=== PATIENT | female | born 1940 | race Caucasian/White ===

== ENCOUNTER 2022-12-26 12:56 | Emergency (ER) | payer MEDICARE, SELFPAY ==
[2022-12-26 13:32] VITALS: BP 127/67; PULSE 70; RESP 16; TEMP 36.6; O2SAT 100
--- NOTE | 2022-12-26 14:29 | ED.EAR ---
HPI - Ear Problem General Chief complaint: Ear Stated complaint: EARACHE Time Seen by Provider: 12/26/22 14:29 Source: patient Mode of arrival: ambulatory Limitations: no limitations History of Present Illness HPI Narrative: 82-year-old female presented for complaint of right ear, jaw, and restorationism Pain for over 1 week. Patient was seen by PCP, has been taking amoxicillin and steroid as prescribed. Denies significant relief in symptoms. States she has had her lower partial plate adjusted several times, but has not had significant pain recently. Denies tinnitus, dizziness, sinus congestion, nausea, vomiting, fevers or chills. Scheduled with ENT in January. Complaint: ear pain Related Data Allergies Allergy/AdvReac Type Severity Reaction Status Date / Time atorvastatin Allergy Mild Rash Verified 12/26/22 13:59 rivaroxaban Allergy Mild Rash Verified 12/26/22 13:59 lisinopril AdvReac Mild COUGH Verified 12/26/22 13:59 Review of Systems Review of Systems: CONSTITUTIONAL: Denies malaise, chills, or fever. EYES: Denies visual changes, redness, or discharge. ENT: Denies rhinorrhea, congestion, sinus pain, and sore throat. Reports ear pain CARDIOVASCULAR: Denies chest pain, palpitations, or edema. RESPIRATORY: Denies cough or dyspnea. GASTROINTESTINAL: Denies abdominal pain, nausea, vomiting, diarrhea SKIN: Denies rash or itching. MUSCULOSKELETAL: Denies myalgia. NEUROLOGIC: Denies headache. All systems reviewed & are unremarkable except as noted in HPI and below PMFSH Past Medical History Medical History (Updated 12/26/22 @ 14:44 by Maria D Warner, MARGARINE CHURN OPERATOR) No pertinent past medical history Comments At time of signature, agree with nursing past medical, surgical, social and family history. There is no relevant family history pertinent to the presenting complaint Exam Narrative: GENERAL: Well-appearing, well-nourished, and in no acute distress. HEAD: Normocephalic EYES: PERRLA, conjunctivae clear ENT: Nares clear. Mucous membranes moist. TMs pearly hunt with normal light reflex bilaterally; no tragal or mastoid tenderness. Oropharynx not erythematous without lesions. Tonsils not enlarged, no drooling, no hoarseness, no trismus, uvula midline. NECK: Supple. No lymphadenopathy CHEST: Clear to auscultation, breath sounds equal. HEART: Regular rate and rhythm. No murmur heard. SKIN: Warm, dry, no rash or lesions NEURO: Alert and oriented x3. PSYCH: Normal mood and affect Course Course Emergency Course: Patient is aware of diagnosis, understands and agrees to treatment plan. Anticipatory guidance given. Patient agrees to follow-up as directed and is aware of reasons to seek care at the emergency department. Portions of this record may have been created with voice recognition software Level of Care: Express Care Visit Vital Signs Vital signs: Vital Signs Temperature 97.8 F 12/26/22 13:32 Pulse Rate 70 12/26/22 13:32 Respiratory Rate 16 12/26/22 13:32 Blood Pressure 127/67 12/26/22 13:32 Pulse Oximetry 100 12/26/22 13:32 Temperature 97.8 F 12/26/22 13:32 Pulse Rate 70 12/26/22 13:32 Respiratory Rate 16 12/26/22 13:32 Blood Pressure 127/67 12/26/22 13:32 Pulse Oximetry 100 12/26/22 13:32 Reviewed Medical Decision Making MDM Narrative Medical decision making narrative: PE unremarkable, discussed physical findings with pt. Suspect trigeminal neuralgia. Currently taking steroid per pcp. Scheduled with ENT in January. Advised supportive measures and signs/symptoms to go to the ER. Patient is appropriate for outpatient treatment and follow-up. Differential Diagnosis Differential Diagnosis: trigeminal neuralgia, temporal arteritis, rhinosinusitis, nasopharyngitis, viral pharyngitis, otitis media, otitis externa, eustachian tube dysfunction, foreign body, cerumen impaction. Vital Signs Vital Signs: Vital Signs Temperature 97.8 F 12/26/22 13:32 Pulse Rate 70 12/26/22 13:32 Res
== END 2022-12-26 14:43 | disposition home or self-care (01) ==
PROVIDERS: Emergency Provider Nurse Practitioner Family; PCP Internal Medicine
DX: R51.9 Headache, unspecified (principal); H92.01 Otalgia, right ear
CPT/HCPCS: 99202; G0463

== ENCOUNTER 2023-04-06 20:14 | Emergency (ER) | payer MEDICARE, SELFPAY ==
[2023-04-06 20:16] VITALS: BP 178/90; PULSE 70; RESP 15; TEMP 36.7; O2SAT 100
--- NOTE | 2023-04-07 | ED.FALL ---
HPI - Fall General Chief Complaint: Fall Stated Complaint: fall Time Seen by Provider: 04/06/23 22:56 History of Present Illness HPI Narrative: Patient tripped on a step earlier while watching a baseball game and fell, landing on her left arm, ripping off a chunk of skin. She has no pain with movement of her elbow, someone at the game immediately wrapped it up with gauze. Related Data Home Medications Medication Instructions Recorded Confirmed apixaban 5 mg tablet (Eliquis) 5 mg PO BID 01/26/23 01/27/23 carboxymethyl 0.5 %-glycerin 1 1 drp EACH EYE QHS 01/26/23 01/27/23 %-polysorb 80 0.5 %-PF eye dropperette (Refresh Optive Umer-3 (PF)) cholecalciferol (vitamin D3) 50 50 mcg PO DAILY 01/26/23 01/27/23 mcg (2,000 unit) capsule ferrous sulfate 325 mg (65 mg 325 mg PO DAILY 01/26/23 01/27/23 iron) tablet fluticasone 250 mcg-salmeterol 50 1 inh inhalation BID 01/26/23 01/27/23 mcg/dose blistr powdr for inhalation (Advair Diskus) levothyroxine 100 mcg capsule 100 mcg PO DAILY 01/26/23 01/27/23 mecobalamin (vitamin B12) 500 mcg mcg PO 01/26/23 01/27/23 chewable tablet rosuvastatin 20 mg tablet 20 mg PO DAILY 01/26/23 01/27/23 telmisartan 40 mg tablet 40 mg PO DAILY 01/26/23 01/27/23 Allergies Allergy/AdvReac Type Severity Reaction Status Date / Time atorvastatin Allergy Mild Rash Verified 04/06/23 20:19 rivaroxaban Allergy Mild Rash Verified 04/06/23 20:19 Sulfa (Sulfonamide Allergy Unknown Unknown Verified 04/06/23 20:19 Antibiotics) lisinopril AdvReac Mild COUGH Verified 04/06/23 20:19 Review of Systems Review of Systems: CONST: No fever. HEENT: No sore throat C/V: No chest pain RESP: No cough GI: No abdominal pain : No dysuria. M/S: injury to left elbow SKIN: Skin tears to left elbow NEURO: [No headache or focal numbness or weakness] PSYCH: [No depression] [facility] Past Medical History Medical History Cataract fragments in both eyes following surgery Hyperlipidemia Hypertension No pertinent past medical history Varicose vein of leg Surgical History Surgical History History of cholecystectomy Total knee replacement status Family History Family History Father Hypertension Heart disease Mother Breast cancer Hypertension Cerebrovascular accident Sibling Cerebrovascular accident Grandparent Hypertension Social History Social History Smoking status: Never smoker Alcohol intake: never Lack of Transportation: No Lack of Food: Never True Current Housing: I Have Housing Concerned About Future Housing: No Difficulty Paying Gas/Electric Bills: No Difficulty Paying for Meds: No Currently Unemployed: No Education: Associate Degree Difficulty w/ Childcare or Family Care: No Gender identity (if verbalized by the patient): Female Exam Narrative: EXAMINATION OF ORGAN SYSTEMS/BODY AREAS: Constitutional: Vital signs per nursing GENERAL:[No acute distress, non-toxic appearing.] HEAD: Normal with no signs of head trauma. EYES: EOMI, conjunctiva normal ENT: Hearing grossly intact LUNGS: Nonlabored breathing. HEART: [Regular rate and rhythm] ABD: [Soft], [tender to palpation] EXT: Normal range of motion SKIN: Large area of skin tear 5 cm x 3 cm to left arm NEURO: [Alert and oriented x 3. No gross focal sensory or strength deficits.] PSYCH: Normal affect Course Vital Signs Vital signs: Vital Signs Temperature 98.1 F 04/06/23 20:16 Pulse Rate 70 04/06/23 20:16 Respiratory Rate 15 04/06/23 20:16 Blood Pressure 178/90 H 04/06/23 20:16 Pulse Oximetry 100 04/06/23 20:16 Oxygen Delivery Room Air 04/06/23 20:16 Temperature 98.1 F 04/06/23 20:16 Pulse Rate 72 04/07/23 01:02 Respiratory Rate 16 04/07/23 01
[2023-04-07 01:02] VITALS: BP 168/85; PULSE 72; RESP 16; O2SAT 97
== END 2023-04-07 01:03 | disposition home or self-care (01) ==
PROVIDERS: Emergency Provider Emergency Medicine; PCP Internal Medicine
DX: S41.112A Laceration without foreign body of left upper arm, initial encounter (principal); I10 Essential (primary) hypertension; E78.5 Hyperlipidemia, unspecified; W19.XXXA Unspecified fall, initial encounter; Y92.320 Baseball field as the place of occurrence of the external cause
CPT/HCPCS: 99282

== ENCOUNTER 2024-03-01 07:17 | Outpatient (CLI) | payer MEDICARE, SELFPAY ==
--- NOTE | ~2024-03-01 | US_ITS ---
EXAMINATION: US carotid duplex BI DATE: 03/01/2024 08:10 INDICATION: Bilateral carotid artery stenosis TECHNIQUE: Grayscale, color Doppler, and pulsed Doppler images of the cervical carotid arteries were obtained. The degree of vessel stenosis is placed in one of the following categories: normal, <50%, 5 0-69%, >=70% but less than near-occlusion, near-occlusion, or total occlusion. Note that percent sten osis relative to normal distal artery lumen diameter is indirectly measured from velocity measurement s as described by Willy, et al. Radiology 2003; 229:340-346. COMPARISON: None. FINDINGS: RIGHT: The right common carotid artery (CCA) peak systolic velocity (PSV) is 68.0 cm/s. The right internal c arotid artery (ICA) PSV is 71.3 cm/s. The right ICA end-diastolic velocity (EDV) is 20.8 cm/s. The ri t ICA/CCA PSV ratio is 1.0. Grayscale and color Doppler images yield an estimate of less than 50% d iameter reduction from plaque in the ICA. The external carotid artery (ECA) PSV is 86.7 cm/s. There i s antegrade flow in the right vertebral artery. LEFT: The left CCA PSV is 63.5 cm/s. The left ICA PSV is 70.2 cm/s. The left ICA EDV is 16.4 cm/s. The left ICA/CCA PSV ratio is 1.1. Grayscale and color Doppler images yield an estimate of less than 50% diam eter reduction from plaque in the ICA. The ECA PSV is 74.7 cm/s. There is antegrade flow in the left vertebral artery. IMPRESSION: 1. Less than 50% stenosis in the right internal carotid artery. 2. Less than 50% stenosis in the left internal carotid artery. Reviewed, dictated and finalized at Location [facility]. Reviewed, dictated and finalized at location B.
== END 2024-03-01 07:18 | disposition home or self-care (01) ==
PROVIDERS: PCP Internal Medicine; Visit Provider Internal Medicine Cardiovascular Disease
DX: I65.23 Occlusion and stenosis of bilateral carotid arteries (principal)
CPT/HCPCS: 93880

== ENCOUNTER 2024-05-26 01:48 | Day surgery (SDC) | payer MEDICARE, SELFPAY ==
[2024-05-26] VITALS (9 sets, daily range): BP systolic 137–176; BP diastolic 71–85; PULSE 61–70; RESP 14–29; TEMP 36.7; O2SAT 97–99; BMI 36.3
--- NOTE | 2024-05-26 07:30 | ECG_ITS ---
Test Date: 2024-05-26 12:58:03 Measurements Intervals [place] Rate: 69 P: 0 WA: 0 QRS: -73 QRSD: 188 T: 110 QT: 476 QTc: 513 Interpretive Statements ELECTRONIC VENTRICULAR PACEMAKER ABNORMAL RHYTHM ECG No previous ECG available for comparison Electronically Signed On 05-26-2024 15:10:54 CDT by Sixto Wilcox M.D.
[2024-05-26 08:24] LABS: Basophils Absolute Auto 0.1 K/mm3 (0.0-0.1); Basophils Percent Auto 0.8 % (0.2-1.2); Eosinophils Absolute Auto 0.1 K/mm3 (0-0.3); Eosinophils Percent Auto 2.2 % (0-4.4); Hematocrit 38.3 % (37.0-47.0); Hemoglobin 11.8 g/dL (12.0-15.0); Immature Granulocyte Absolute 0.04 K/mm3 (0.00-0.031); Immature Granulocyte Percent A 0.6 % (0-0.5); Lymphocytes Absolute Auto 1.62 K/mm3 (0.9-3.2); Lymphocytes Percent Auto 25.3 % (18.3-44.2); Mean Corpuscular HGB Conc 30.8 g/dl (32-36); Mean Corpuscular Hemoglobin 28.4 pg (26-34); Mean Corpuscular Volume 92.3 fl (80-100); Mean Platelet Volume 10.8 fl (7.4-10.4); Monocytes Absolute Auto 0.8 K/mm3 (0.1-0.6); Neutrophils Absolute Auto 3.7 K/mm3 (1.3-6.7); Neutrophils Percent Auto 58.1 % (45.5-73.1); Platelet Count Result 294 k/mm3 (150-375); Red Blood Count 4.15 M/mm3 (4.2-5.4); White Blood Count 6.4 K/mm3 (4.5-10.0)
[2024-05-26 08:33] LABS: Anion Gap 12 mmol/L (4-12); Blood Urea Nitrogen 40 mg/dL (7-17); Calcium 9.3 mg/dL (8.4-10.2); Carbon Dioxide 24 mmol/L (22-30); Chloride 101 mmol/L (98-107); Estimated CRCL calculation 22 ml/min; Estimated Glomerular Filt Rate 27; Glucose 114 mg/dL (65-110); Potassium 4.2 mmol/L (3.4-5.0); Sodium 137 mmol/L (137-145)
--- NOTE | 2024-05-26 08:36 | PM.IMHP ---
H&P: HPI History of Present Illness Date/Time: 05/26/24 08:36 Chief Complaint: No complaint, elective outpatient pacemaker generator change Narrative: This is an 84-year-old woman admitted today as an outpatient for generator change of her chronically implanted pacemaker which is been found to be at [facility] routine follow-up in the office. She follows in my office with Dr. Figueroa with a history of atrial fibrillation as well as Darvin arrhythmias requiring pacemaker implantation. Her device was implanted in January of 2012 because of sick sinus syndrome and symptomatic bradycardia. According to the notes she did have a lead revision done in her right ventricle in July of 2014. She has been followed since then has been doing well. According to the records her atrial fibrillation has now become chronic and she is anticoagulated with apixaban. On routine follow-up her pacemaker device has been found to be at [facility] and she is admitted today for a generator change. He does not report symptoms of chest pain shortness of breath orthopnea PND edema or near syncope. Anticoagulation with apixaban has been stopped 4 days ago. Review of Systems Constitutional: Constitutional: Reports no additional constitutional complaints Eyes: Eyes: Reports no additional eye complaints ENT: Reports system reviewed and no additional complaints, except as documented Cardiovascular: Cardiovascular: Reports no additional cardiovascular complaints Respiratory: Respiratory: Reports no additional respiratory complaints Gastrointestinal: Gastrointestinal: Reports no additional gastrointestinal complaints Musculoskeletal: Musculoskeletal: Reports no additional musculoskeletal complaints Neurologic: Reports system reviewed and no additional complaints, except as documented [facility] Past Medical History Medical History Cataract fragments in both eyes following surgery Hyperlipidemia Hypertension No pertinent past medical history Varicose vein of leg Surgical History Surgical History History of cholecystectomy Total knee replacement status Family History Family History Father Hypertension Heart disease Mother Breast cancer Hypertension Cerebrovascular accident Sibling Cerebrovascular accident Grandparent Hypertension Social History Social History Smoking status: Never smoker Alcohol intake: never Substance use: never Lack of Transportation: No Lack of Food: Never True Current Housing: I Have Housing Concerned About Future Housing: No Difficulty Paying Gas/Electric Bills: No Difficulty Paying for Meds: No Currently Unemployed: No Education: Associate Degree Difficulty w/ Childcare or Family Care: No Living arrangements: with family Gender identity (if verbalized by the patient): Female Spiritual care concerns: No Meds Home Medications and Allergies Home Medications Medication Instructions Recorded Confirmed Type apixaban 5 mg tablet (Eliquis) 5 mg PO BID 01/26/23 05/25/24 History carboxymethyl 0.5 %-glycerin 1 1 drp EACH EYE QHS 01/26/23 05/25/24 History %-polysorb 80 0.5 %-PF eye dropperette (Refresh Optive Umer-3 (PF)) cholecalciferol (vitamin D3) 50 50 mcg PO DAILY 01/26/23 05/25/24 History mcg (2,000 unit) capsule ferrous sulfate 325 mg (65 mg 325 mg PO DAILY 01/26/23 05/25/24 History iron) tablet levothyroxine 100 mcg capsule 100 mcg PO DAILY 01/26/23 05/25/24 History rosuvastatin 20 mg tablet 20 mg PO DAILY 01/26/23 05/25/24 History telmisartan 40 mg tablet 40 mg PO DAILY 01/26/23 05/25/24 History omeprazole 20 mg capsule,delayed 20 mg PO DAILY 02/02/24 05/25/24 History release mecobalamin (vitamin B12) 1,000 500 mcg sublingual DAILY 05/25/24 05/25/24 History mcg disintegrating
--- NOTE | 2024-05-26 08:40 | WPDMODSED ---
Moderate Sedation Note-Pt Data Patient Data Diagnosis: Chronically implanted pacemaker at [facility] Chronic atrial fibrillation Present Complaint: No complaint Procedure to be performed/Plan: Pacemaker generator change Allergies Allergy/AdvReac Type Severity Reaction Status Date / Time atorvastatin Allergy Mild Rash Verified 05/26/24 08:07 rivaroxaban Allergy Mild Rash Verified 05/26/24 08:07 Sulfa (Sulfonamide Allergy Unknown Unknown Verified 05/26/24 08:07 Antibiotics) lisinopril AdvReac Mild COUGH Verified 05/26/24 08:07 Home Medications Medication Instructions Recorded Confirmed Type apixaban 5 mg tablet (Eliquis) 5 mg PO BID 01/26/23 05/25/24 History carboxymethyl 0.5 %-glycerin 1 1 drp EACH EYE QHS 01/26/23 05/25/24 History %-polysorb 80 0.5 %-PF eye dropperette (Refresh Optive Umer-3 (PF)) cholecalciferol (vitamin D3) 50 50 mcg PO DAILY 01/26/23 05/25/24 History mcg (2,000 unit) capsule ferrous sulfate 325 mg (65 mg 325 mg PO DAILY 01/26/23 05/25/24 History iron) tablet levothyroxine 100 mcg capsule 100 mcg PO DAILY 01/26/23 05/25/24 History rosuvastatin 20 mg tablet 20 mg PO DAILY 01/26/23 05/25/24 History telmisartan 40 mg tablet 40 mg PO DAILY 01/26/23 05/25/24 History omeprazole 20 mg capsule,delayed 20 mg PO DAILY 02/02/24 05/25/24 History release mecobalamin (vitamin B12) 1,000 500 mcg sublingual DAILY 05/25/24 05/25/24 History mcg disintegrating tablet,sublingual Sedation/Anesthesia: No previous sedation/anesthesia problems (including family history). [facility] Past Medical History Medical History Cataract fragments in both eyes following surgery Hyperlipidemia Hypertension No pertinent past medical history Varicose vein of leg Surgical History Surgical History History of cholecystectomy Total knee replacement status Family History Family History Father Hypertension Heart disease Mother Breast cancer Hypertension Cerebrovascular accident Sibling Cerebrovascular accident Grandparent Hypertension Social History Social History Smoking status: Never smoker Alcohol intake: never Substance use: never Lack of Transportation: No Lack of Food: Never True Current Housing: I Have Housing Concerned About Future Housing: No Difficulty Paying Gas/Electric Bills: No Difficulty Paying for Meds: No Currently Unemployed: No Education: Associate Degree Difficulty w/ Childcare or Family Care: No Living arrangements: with family Gender identity (if verbalized by the patient): Female Spiritual care concerns: No Mod Sed Physical Exam Physical Exam Pre Procedural Exam: Normal: Appearance, Neck, Throat, Airway, Lungs, Heart Size, Heart Rate, Heart Rhythm and Extremities Hours since solid foods: 12 Hours since liquid intake: 12 Mallampati Classification: class II Internal Medicine - PN: Obj Da Vital Signs Vital Signs: Vital Signs - 24 hr 05/26/24 08:14 Temperature 36.7 C Pulse Rate 70 Respiratory Rate 19 Blood Pressure 176/71 H Pulse Oximetry 99 Oxygen Delivery Room Air Labs 05/26/24 08:16 05/26/24 08:16 Labs: Laboratory Results - last 24 hr 05/26/24 08:16 WBC 6.4 RBC 4.15 L Hgb 11.8 L Hct 38.3 MCV 92.3 MCH 28.4 MCHC 30.8 L RDW 14.0 Plt Count 294 MPV 10.8 H Immature Gran % (Auto) 0.6 H Neut % (Auto) 58.1 Lymph % (Auto) 25.3 [place]borne % (Auto) 13.0 H Eos % (Auto) 2.2 Baso % (Auto) 0.8 Lymph # (Auto) 1.62 [place] # (Auto) 0.8 H Eos # (Auto) 0.1 Baso # (Auto) 0.1 Abs Immat Gran (auto) 0.04 H Absolute Neuts (auto) 3.7 Absolute Nucleated RBC 0.000 Nucleated RBC % 0.0 Sodium 137 Potassium 4.2 Chloride 101 Carbon Dioxide 24 Anion Gap 12 BUN 40 H Creatinine
--- NOTE | 2024-05-26 11:52 | WPDCARDPROC ---
Cardiac Cath Procedure Note Date of procedure:: 05/26/24 Performing physician:: Sixto Wilcox MD Indication:: permanent pacemaker at [facility] Brief clinical history:: this is an 84-year-old woman with chronic atrial fibrillation and chronically implanted pacemaker because of sick sinus syndrome. Her current device was implanted in 2013. She is admitted electively for pacemaker generator change. Procedure Procedure performed:: Explant of depleted pacemaker pulse generator implant of new dual-chamber pacemaker pulse generator Sedation/Medication given:: fentanyl 50 mg Versed 4 mg case start time 10:34 a.m. case end time 1147 sedation provided by Tonya Rodriguez RN, trained observer Access site:: chronically implanted pacemaker pocket in the left anterior chest Estimated blood loss:: minimal Procedure note:: patient was brought to the cardiac catheterization lab in the postabsorptive state where the right femoral triangle was prepped and draped in the usual fashion. Anesthesia was given with 1% lidocaine infiltrated locally. Using modified Seldinger technique the femoral vein was punctured and a 5 vascular sheath placed. After this a balloon tipped temporary pacemaking wire was advanced into the venous circulation to the level of the right atrium. Despite multiple attempts I was unable to traverse the tricuspid valve and into the right ventricle. Attempts to protect the rhythm with temporary pacing were then abandoned. the left anterior chest wall was then prepped and draped to the thoracic portion of the procedure. I broke scrub and re scrubbed for that portion of the procedure. The patient received 20 cc of 1% lidocaine infiltrated a pocket and then the PlasmaBlade was used to create an incision over the chronically and plated pocket and was used to provide cutaneous hemostasis with electrocautery. The fibrous capsule was encountered and opened using the plasma blade and the Metzenbaum scissors. Following this the pacemaker generator in the attached leads were removed from the pocket and found to be visually intact and unremarkable in appearance. The atrial lead was then disconnected using the torque wrench and placed into the new generator and tightened using the same torque wrench. The ventricular lead was then disconnected using the torque wrench and quickly placed into the new pacemaker generator and secured with a torque wrench. There was an asystolic pause when the lead was transferred from the depleted generator to the new generator as the patient is pacemaker dependent. This pause was tolerated without incident. Following this the pocket was irrigated with antibiotic infused saline. The pacemaker in the attached leads were placed into the pocket this was then closed in layers using 3-0 Vicryl in an interrupted fashion for the subcutaneous tissue and 4-0 Vicryl in a running subcuticular fashion the skin. The wound was dressed with an Aquacel dressing she was taken to the holding area in stable condition there were no apparent procedural complications. Venous sheath removed from right femoral vein in the fish hatchery laborer before she left the fish hatchery laborer Findings:: the new pacemaker device implanted is an Fatsoma dual-chamber pacemaker model Assurity MRI 2272 pacemaker serial number [id number]. Device is programmed in the VVI mode with a lower rate limit of 70. The chronically implanted atrial lead is a [employer] Optisense 1999/46 CM , serial number [id number]. patient is in atrial fib as the chronic rhythm therefore the lead is nonfunctional chronically implanted ventricular lead is a [employer] bipolar lead model Tendril STS 2088TC /52cm serial number [id number]. the patient has no intrinsic R-waves to sense and capture threshold is 1.25 volts at 0.4 millisecond impedance 440 Ohms. Conclusion:: 1. Successful uncomplicated explantation of depleted pacemaker pulse generator 2. successful uncompl
== END 2024-05-26 14:15 | disposition home or self-care (01) ==
LOC: ANHCATHLAB 01:50 → ANHCARD 07:53 → ANHCATHLAB 07:58
PROVIDERS: PCP Internal Medicine; Visit Provider Specialist
PROC: 0JPT0PZ Removal of Cardiac Rhythm Related Device from Trunk Subcutaneous Tissue and Fascia, Open Approach (ICD-10-PCS; CPT 33228; principal; 2024-05-26 09:00)
DX: Z45.010 Encounter for checking and testing of cardiac pacemaker pulse generator [battery] (principal); I48.20 Chronic atrial fibrillation, unspecified; E78.5 Hyperlipidemia, unspecified; I10 Essential (primary) hypertension; Z96.659 Presence of unspecified artificial knee joint
CPT/HCPCS: 33228; 36415; 80048; 85025; 93005; C1785; C1894; J0690; J1644; J2250; J3010; J7040

== ENCOUNTER 2025-06-08 02:49 | Emergency (ER) | payer MEDICARE, SELFPAY ==
--- OUTSIDE RECORDS SUMMARY | 2010-03-25 10:15 | XMS_ITS | Continuity of Care Document ---
Author Organization [facility] Address [address] [facility] [facility] [address] [place] [address] Phone Care Team Providers Care Manager Enterprise Name Role Phone Duong Duffy Unavailable Unavailable Procedures Procedure Date Eye Exam & Treatment Refraction Office/outpatient Visit, Est Office/outpatient Visit, Est Office/outpatient Visit, Est Advance Directives Directive Yes / No Effective Date File Name No Information Encounters Encounter Description Practice Location Reason(s) For Visit Diagnoses Date Provider Providers Copied on Encounter [facility], [address] [place] [address] [address], [place], [place], [id number], [place] tel:[phone] SEC [facility] No Information 5 0 Loboishnasamy Duong. [address], [facility], [place]. tel:[phone] Office/outpat ient Visit, [facility], [address] [place] [address] [address], [place], [place], [id number], [place] tel:[phone] SEC [facility] No Information Dickson-0 1-201 0 Krishnasamy Duong. [address] [facility] [address], [place], [address], [place]. tel:[phone] Office/outpat ient Visit, [facility], [address] [place] [address] [address], [place], [place], [id number], [place] tel:[phone] SEC [facility] No Information 0 Tati Duong. [address], [address], [place]. tel:[phone] Office/outpat ient Visit, [facility], [address], [place], [place], [id number], tel:[phone] SEC [facility] No Information 0 Tati Duong. [address], [address], [place]. tel:[phone] Family History Family Member Type Diagnosis Age At Onset No Information Payers Payer name Insurance type Covered alliance party ID Nilton ramona(s) [employer] Plan [id number] Social History Type Description Quantity Date Captured [...]
[2025-06-08 02:48] VITALS: BP 162/59; PULSE 70; RESP 17; TEMP 36.6; O2SAT 100
--- OUTSIDE RECORDS SUMMARY | 2025-06-08 03:39 | XMS_ITS | Encounter Summary ---
Author Organization [facility] Medical Group Address [address] [address] Care Team Providers Care Corner Cutter Name Role Phone Leo Palacios MD Primary Care Provider Encounter Details Date Type Department Care Team (Late st Contact Info) Description 02/09/2017 Orders Only [facility] ProviderNara MD [address] [place] [id number] Social History Tobacco Use Types Packs/Day Years Used Date Smoking Tobacco: Never Alcohol Use Standard Drinks/Week Comments No 0 (1 standard drink = 0.6 oz pur e alcohol) Comments Unknown Sex and Gender Information Value Date Recorded Sex Assigned at Not on file Legal Sex 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 Historical Provider [facility] YRN [facility] Final Result documented in this encounter Visit Diagnoses Not on filedocumented in this encounter Care Teams Corner Cutter Relationship Specialty Start Date End Date Leo Palacios MD PCP - General 01/08/17 documented as of this encounter
--- OUTSIDE RECORDS SUMMARY | 2025-06-08 03:39 | XMS_ITS | Encounter Summary ---
Author Organization [facility] Healthcare Address [address] [place] [address] Care Team Providers Care Organic Preparation Analyst Name Role Phone Leo Palacios MD Primary Care Provider Encounter Details Date Type Department Care Team (Late st Contact Info) Description 05/26/2024 Orders Only [facility] Information Management [address] [place] [id number] Scanning, Provider Social History Tobacco Use Types Packs/Day Years Used Date Smoking Tobacco: Never Smokeless Tobacco: Never Alcohol Use Standard Drinks/Week Comments No 0 (1 standard drink = 0.6 oz pur e alcohol) Comments Unknown Sex and Gender Information Value Date Recorded Sex Assigned at Not on file 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 Gender Identity Not on file Sexual Orientation Not on file documented as of this encounter Plan of Treatment Not on file documented as of this encounter Procedures Procedure Name Priority Date/Time Associated Diagnosis Comments CARDIOLOGY DOCUMENT SCAN 05/26/2024 documented in this encounter Results * Cardiology Document Scan (05/26/2024) Anatomical Region Laterality Modality Other us Provider Scanning [facility] PROCEDURES Edited Result - Final documented in this encounter Visit Diagnoses Not on filedocumented in this encounter Care Teams Organic Preparation Analyst Relationship Specialty Start Date End Date Leo Palacios MD PCP - General 01/08/17 documented as of this encounter
--- OUTSIDE RECORDS SUMMARY | 2025-06-08 03:39 | XMS_ITS | Encounter Summary ---
Author Organization [facility] Medical Group Address [address] [address] Care Team Providers Care Home Health Care Case Manager Name Role Phone Leo Palacios MD Primary Care Provider Leo Palacios MD Primary Care Provider Encounter Details Date Type Department Care Team (Late st Contact Info) Description 11/10/2016 Orders Only [facility] ProviderNara MD [facility] [place] [address] Social History Tobacco Use Types Packs/Day Years Used Date Smoking Tobacco: Never Alcohol Use Standard Drinks/Week Comments No 0 (1 standard drink = 0.6 oz pur e alcohol) Comments Unknown Sex and Gender Information Value Date Recorded Sex Assigned at Not on file 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 Historical Provider [facility] YRN [facility]SHALL Final Result documented in this encounter Visit Diagnoses Not on filedocumented in this encounter Care Teams Home Health Care Case Manager Relationship Specialty Start Date End Date Leo Palacios MD PCP - General 01/08/17 Leo Palacios MD PCP - General 12/29/10 01/07/17 documented as of this encounter
--- OUTSIDE RECORDS SUMMARY | 2025-06-08 03:39 | XMS_ITS | Clinical Summary ---
Author Organization [facility] [address] Address [address] [place] [address] Care Team Providers Care Benzene Operator Name Role Phone Leo Palacios MD Primary Care Provider Allergies Active Allergy Reactions Criticality Noted Date Comments Ezetimibe Muscle pain Medium 04/29/2021 Atorvastatin Cough Low Sulfa (Sulfonamide Antibiotics) Rash Medium 02/02/2020 Rivaroxaban Other (See comments) Low 03/19/2020 Bleeding Medications rosuvastatin (CRESTOR) 20 mg tablet take 1 tablet (20MG) by oral route every day 0 12/03/19 11 Active cycloSPORINE (RESTASIS) 0.05 % ophthalmic emulsion instill 1 drop by ophthalmic route every 12 hours into affected eye(s) 0 drop 0 09/13/20 13 Active ferrous sulfate (IRON) 325 mg (65 mg iron) capsule, extended release take 1 by Oral route every day 0 0 09/13/20 13 Active fluticasone-salm eterol (ADVAIR DISKUS) 250-50 mcg/dose diskus inhaler inhale 1 puff by inhalation route 2 times every day in the morning and evening approximately 12 hours apart 0 0 03/27/20 15 Active levothyroxine (SYNTHROID, LEVOTHROID) 100 mcg tablet Take 1 tablet (100 mcg total) by mouth sales inspector before breakfast 08/11/20 18 Active cyanocobalamin (Vitamin B-12) 1,000 mcg tabletIndication s:Prevention of Vitamin B12 Deficiency Take 0.5 tablets (500 mcg total) by mouth daily Active carboxymethylcel lulose (REFRESH PLUS) 0.5 % dropperette Administer 1 drop into both eyes daily as needed for dry eyes Active furosemide (LASIX) 20 mg tabletIndication s:Bilateral lower extremity edema Take 1 tablet (20 mg total) by mouth daily as needed (swelling) 30 tablet 11 02/20/20 23 Active omeprazole (PriLOSEC) 10 mg capsule Take 1 capsule (10 mg total) by mouth daily Active telmisartan (MICARDIS) 40 mg tablet TAKE 1 TABLET BY MOUTH ONCE DAILY 100 tablet 2 08/24/20 24 Active cholecalciferol (VITAMIN D-3) 2000 unit capsule Take 1 capsule (2,000 Units total) by mouth daily 01/27/20 23 Active ascorbic acid (ascorbic acid with ju hips) 500 mg tablet,chewable Take 1 tablet/chew tab (500 mg total) by mouth daily Active apixaban (ELIQUIS) 2.5 mg tabletIndication s:atrial fibrillation Take 1 tablet (2.5 mg total) by mouth 2 (two) times a day 180 tablet 3 06/06/20 25 026 Active Eliquis 5 mg tablet TAKE 1 TABLET BY MOUTH TWICE DAILY 60 tablet 11 09/25/20 24 025 Discontin ued(Alter ernst therapy) Active Problems Problem Noted Date Diagnosed Date Bilateral carotid artery stenosis 02/16/2024 Chronic anticoagulation 02/26/2022 Bilateral lower extremity edema 12/12/2020 Presence of cardiac pacemaker 03/16/2017 Overview (06/07/2024): [place] Assurity Dual Pacemaker Dx; CHB, Afib. DOI 05/26/2024-Jeri. Chronic V-lead 07/16/2014, chronic atrial lead 01/20/11. [facility] remote monitoring. Programmed VVI-Bill Single PM. Peripheral artery disease 03/16/2017 Hyperlipidemia LDL goal <70 03/16/2017 Essential hypertension, benign 03/16/2017 Non-rheumatic aortic stenosis 03/16/2017 Complete atrioventricular block 09/13/2014 Overview (01/16/2017): Complete atrioventricular block Atrial fibrillation 09/13/2014 Overview (01/16/2017): Atrial fibrillation Encounters Date Type Department Care Team Description 06/06/2025 9:30 AM CDT Office Visit [facility] Cardiology [address] [place] [address] Tony Figueroa MD Bilateral carotid artery stenosis (Primary Dx); Essential hypertension, benign; Hyperlipidemia LDL goal <70; Non-rheumatic aortic stenosis; Presence of cardiac pacemaker; Chronic anticoagulation; Paroxysmal atrial fibrillation (HCC) 06/06/2025 Orders Only [facility] Cardiology [address] [place] [address] ProviderNara MD 03/27/2025 8:15 AM CDT Ancillary Procedure [facility] Medical [facility] Cardiology [address] [facility] [address], [place] [address] Presence of cardiac pacemaker (Primary Dx); Paroxysmal atrial fibrillation (HCC); CHB (complete heart block) (HCC) from Last 3 Months Family History Medical History Relation Name Comments Heart attack Father Myocardial Infa rction; Cause of : Myocardial Infarction Hypertension Maternal Grandfather Stroke Maternal Grandfather Hypertension Maternal Grandmother Stroke Maternal Grandmother Cancer Mother Hypertension Mother Stroke Mother Relation Name Status Comments Father Maternal Grandfather Maternal Grandmother Mother Social History Tobacco Use Types Packs/Day Years Used Date Smoking Tobacco: Never Smokeless Tobacco: Never Tobacco Cessation:Counseling Given: Not Answered Alcohol Use Standard Drinks/Week Comments No 0 (1 standard drink = 0.6 oz pur e alcohol) Comments Unknown Sex and Gender Information Value Date Recorded Sex Assigned at Not on file Legal Sex Female 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 Gender Identity Not on file Sexual Orientation Not on file Obstetrics History Last Filed Vital Signs Vital Sign Reading Time Taken Comments Blood Pressure 130/70 06/06/2025 9:59 AM CDT Pulse 70 06/06/2025 9:30 AM CDT Temperature 36.3 C (97.3 F) 06/10/2020 9:00 AM CDT Respiratory Rate - - Oxygen Saturation 99% 06/06/2025 9:30 AM CDT Inhaled Oxygen Concentration - - Weight 89.8 kg (198 lb) 06/06/2025 9:30 AM CDT Height 162.6 cm (5' 4) 06/06/2025 9:30 AM CDT Body Mass Index 33.99 06/06/2025 9:30 AM CDT Plan of Treatment Health Maintenance Due Date Last Done Comments Depression Screening 1940 Fall Risk Assessment 1940 Hepatitis B Screening 1958 Well Visit 65+ 2004 DTaP/Tdap/Td Vaccine (1 - Tdap) 06/01/2019 05/31/2019, 05/31/2019, 05/15/2019 Pneumococcal vaccine 65+ (3 of 3 - PCV20 or PCV21) 10/30/2020 10/30/2015, 07/11/1999 Zoster Vaccine (2 of 2) 02/08/2024 12/14/2023 Osteoporosis Screening-Bone Density Scan 01/28/2025 01/28/2023 Influenza Vaccine (#1) 2025 , 07/09/2022, 07/04/2021, Additional history exists Medical Devices Implanted Type Area Value Stream Manager Device Identifier Shelf Expiration Date Model / Serial / Lot [employer] Optisense 7fr 46cm Is-1 Bipolar Connector Optim Insulation-09/2011 Implanted:09/2011 (Quantity not on file) Lead Right: Chest [employer] / [id number] / [employer] 2087tc/ Tendril Sts 6fr 52cm Is-1 Connector Active Fixation Bipolar Soft- Implanted:03/2014 (Quantity not on file) Lead Right: Chest [employer] 8TC/52 / [id number] / Pacemaker-07/16/2014 Implanted:03/2014 (Quantity not on file) Pacemaker Chest [employer] CHB, PAF ASSURITY DR Genao0 / [id number] / Description:Chronic Atrial l ead 01/20/2011. Procedures Procedure Name Priority Date/Time Associated Diagnosis Comments LIPID PANEL Routine 05/08/2025 12:13 PM CDT DEVICE CHECK - REMOTE Routine 04/05/2025 3:55 PM CDT Paroxysmal atrial fibrillation (HCC) CHB (complete heart block) (HCC) from Last 3 Months Results * Lipid panel (05/08/2025 12:13 PM CDT) SCRIBED Cholesterol, Total 151 30 - 199 mg/dL [facility] SCRIBED Triglycerides 61 <=149 mg/dL [facility] SCRIBED HDL 66 >=40 mg/dL [facility] SCRIBED LDL 71 <=129 mg/dL [facility] Scribed Non-HDL Cholesterol 85 NONE mg/dL [facility] SCRIBED Total Cholesterol/HDL Ratio 151 NONE [facility] Blood Historical Provider LAB BLOOD ORDERABLES Edit ed Result - Final [facility] * DEVICE CHECK - REMOTE (04/05/2025 3:55 PM CDT) Anatomical Region Laterality Modality Other Narrative 05/10/2025 4:[address] [employer] dual Pacemaker Dx; CHB, PAF. DOI 07/16/2014, chronic atrial lead 01/20/11. [facility] remote home monitoring Q3 mo, office pacer checks Q1 year. Routine VVI Pacemaker Remote. Transmission attached. Battery status: 3.01 V , 9.1-9.5 years remaining battery life to [facility]. Stable lead impedances, pacing and sensing thresholds. Presenting rhythm: MATERIALS PLANNING MANAGER MATERIALS PLANNING MANAGER-90% No AT/AF episodes noted. No Ventricular high rate episodes detected. Medications: Eliquis 5 mg See scanned report. Office pacemaker follow up: 07/11/25 [facility] remote f/u 06/26/25. Raudel Thomas RN Tony Figueroa MD [facility] Final Result from Last 3 Months Insurance [facility] MEDICARE ADVANTAGE Care Teams Benzene Operator Relationship Specialty Start Date End Date Leo Palacios MD PCP - General 01/08/17
--- OUTSIDE RECORDS SUMMARY | 2025-06-08 03:39 | XMS_ITS | Encounter Summary ---
Author Organization [facility] Healthcare Address [address] [place] [address] Care Team Providers Care Switchbox Assembler Name Role Phone Leo Palacios MD Primary Care Provider Encounter Details Date Type Department Care Team (Late st Contact Info) Description 06/06/2025 Orders Only [facility] Medical [facility] Cardiology [address] [place] [address] ProviderNara MD [address] [place], [place] [id number] Social History Tobacco Use Types Packs/Day Years Used Date Smoking Tobacco: Never Smokeless Tobacco: Never Alcohol Use Standard Drinks/Week Comments No 0 (1 standard drink = 0.6 oz pur e alcohol) Comments Unknown Sex and Gender Information Value Date Recorded Sex Assigned at Not on file 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 Gender Identity Not on file Sexual Orientation Not on file documented as of this encounter Plan of Treatment Not on file documented as of this encounter Procedures Procedure Name Priority Date/Time Associated Diagnosis Comments LIPID PANEL Routine 05/08/2025 12:13 PM CDT documented in this encounter Results * Lipid panel (05/08/2025 12:13 PM CDT) SCRIBED Cholesterol, Total 151 30 - 199 mg/dL [facility] SCRIBED Triglycerides 61 <=149 mg/dL [facility] SCRIBED HDL 66 >=40 mg/dL [facility] SCRIBED LDL 71 <=129 mg/dL [facility] Scribed Non-HDL Cholesterol 85 NONE mg/dL [facility] SCRIBED Total Cholesterol/HDL Ratio 151 NONE [facility] Blood us Historical Provider LAB BLOOD ORDERABLES Edit ed Result - Final [facility] documented in this encounter Visit Diagnoses Not on filedocumented in this encounter Care Teams Switchbox Assembler Relationship Specialty Start Date End Date Leo Palacios MD PCP - General 01/08/17 documented as of this encounter
--- NOTE | 2025-06-08 04:10 | ED.GENADULT ---
HPI - General Adult General Chief complaint: Epistaxis Stated complaint: nosebleed Time Seen by Provider: 06/08/25 03:04 History of Present Illness HPI narrative: This is a pleasant 85-year-old female on Eliquis presenting for nose bleed. Patient says she woke up from sleep when he is resting which she knows blood was dripping from her nose. She was unable to get it to stop and then called EMS. EMS put on a nasal clamp. By time I interviewed the patient all bleeding had stopped. Related Data Home Medications ?Medication ?Instructions ?Recorded ?Confirmed ?Last Taken ?Type apixaban 5 mg tablet (Eliquis) 5 mg PO BID 01/26/23 02/07/25 05/22/24 17:00 History carboxymethyl 0.5 %-glycerin 1 1 drp EACH EYE QHS 01/26/23 02/07/25 05/25/24 History %-polysorb 80 0.5 %-PF eye dropperette (Refresh Optive Umer-3 (PF)) cholecalciferol (vitamin D3) 50 50 mcg PO DAILY 01/26/23 02/07/25 05/25/24 History mcg (2,000 unit) capsule ferrous sulfate 325 mg (65 mg 325 mg PO DAILY 01/26/23 02/07/25 05/25/24 History iron) tablet levothyroxine 100 mcg capsule 100 mcg PO DAILY 01/26/23 02/07/25 05/26/24 History rosuvastatin 20 mg tablet 20 mg PO DAILY 01/26/23 02/07/25 05/26/24 History telmisartan 40 mg tablet 40 mg PO DAILY 01/26/23 02/07/25 05/26/24 History omeprazole 20 mg capsule,delayed 20 mg PO DAILY 02/02/24 02/07/25 05/26/24 History release mecobalamin (vitamin B12) 1,000 500 mcg sublingual DAILY 05/25/24 02/07/25 05/25/24 History mcg disintegrating tablet,sublingual Allergies Allergy/AdvReac Type Severity Reaction Status Date / Time atorvastatin Allergy Mild Rash Verified 02/07/25 09:17 rivaroxaban Allergy Mild Rash Verified 02/07/25 09:17 Sulfa (Sulfonamide Allergy Unknown Unknown Verified 02/07/25 09:17 Antibiotics) lisinopril AdvReac Mild COUGH Verified 02/07/25 09:17 [facility] Past Medical History Medical History Cataract fragments in both eyes following surgery Hyperlipidemia Hypertension No pertinent past medical history Varicose vein of leg Surgical History Surgical History History of cholecystectomy Total knee replacement status Family History Family History Father Hypertension Heart disease Mother Breast cancer Hypertension Cerebrovascular accident Sibling Cerebrovascular accident Grandparent Hypertension Social History Social History Smoking status: Never smoker Alcohol intake: never Substance use: never Lack of Transportation: No Lack of Food: Never True Current Housing: I Have Housing Concerned About Future Housing: No Difficulty Paying Gas/Electric Bills: No Difficulty Paying for Meds: No Currently Unemployed: No Education: Associate Degree Difficulty w/ Childcare or Family Care: No Living arrangements: with family Gender identity (if verbalized by the patient): Female Spiritual care concerns: No Exam Narrative: APPEARANCE: No apparent distress. Head: atraumatic. EYES: EOMI, NOSE: Atraumatic, dried blood around the nose, excoriations inside the left nostril without active bleeding no visible bleeding in the right near NECK: Trachea midline RESPIRATORY: No increased rate of breathing CARDIOVASCULAR: RRR, ABDOMINAL: Non-distended MUSCULOSKELETAl: No obvious deformities NEURO: Alert. Moving 4/4 extremities SKIN:: Warm, dry. Normal color PSYCHIATRIC: Normal affect Course Vital Signs Vital signs: Vital Signs Temperature 97.8 F 06/08/25 02:48 Pulse Rate 70 06/08/25 02:48 Respiratory Rate 17 06/08/25 02:48 Blood Pressure 162/59 H 06/08/25 02:48 Pulse Oximetry 100 06/08/25 02:48 Oxygen Delivery Room Air 06/08/25 02:48 Temperature 97.8 F 06/08/25 02:48 Pulse Rate 70 06/08/25 02:48 Respiratory Rate 17 06/08/25 02:48 Blood Pressure 162/59 H 06/08/25 02:48 Pulse Oximetry 100 06/08/25 02:48 Oxygen Delivery Room Air 06/08/25 02:48 Medical Decision Making MDM Narrative Medical decision making narrative: -Course: 85-year-old female presenting with epistaxis. Bleed resolved with direct pressure. Patient educated on bleeding control and when to return to the ED. Patient will follow-up with primary care physician for further management. Vital Signs Vital Signs: Vital Signs Temperature 97.8 F 06/08/25 02:48 Pulse Rate 70 06/08/25 02:48 Respiratory Rate 17 06/08/25 02:48 Blood Pressure 162/59 H 06/08/25 02:48 Pulse Oximetry 100 06/08/25 02:48 Oxygen Delivery Room Air 06/08/25 02:48 Temperature 97.8 F 06/08/25 02:48 Pulse Rate 70 06/08/25 02:48 Respiratory Rate 17 06/08/25 02:48 Blood Pressure 162/59 H 06/08/25 02:48 Pulse Oximetry 100 06/08/25 02:48 Oxygen Delivery Room Air 06/08/25 02:48 Discharge Plan Discharge Clinical Impression: Epistaxis Patient Disposition: Home Condition: Stable Instructions: Antibiotic Form, Nosebleed (ED) Additional Instructions: You were seen in the ED for a nose bleed. If this happens again please hold direct pressure for 15 minutes to see if that resolves the bleeding. If you cannot control bleeding home please return to the emergency department. Please follow-up with your primary care physician in 5-7 days for further management. Patient Language: Romansh Prescriptions: No Action omeprazole 20 mg capsule,delayed release(DR/EC) 20 mg PO DAILY telmisartan 40 mg tablet 40 mg PO DAILY levothyroxine 100 mcg capsule 100 mcg PO DAILY rosuvastatin 20 mg tablet 20 mg PO DAILY Eliquis 5 mg tablet 5 mg PO BID ferrous sulfate 325 mg (65 mg iron) tablet 325 mg PO DAILY cholecalciferol (vitamin D3) 50 mcg (2,000 unit) capsule 50 mcg PO DAILY Refresh Optive Umer-3 (PF) 0.5-1-0.5 % dropperette 1 drp EACH EYE QHS mecobalamin (vitamin B12) 1,000 mcg Tablet,Disintegrating 500 mcg SUBLINGUAL DAILY Rx Instructions: place tablet under tongue and allow to dissolve for at least30 secs before swallowing Follow-up/Referrals: Philip,Leo Castro MD [Primary Care Provider]
[2025-06-08 05:19] VITALS: BP 123/57; PULSE 68; RESP 18; O2SAT 100
[2025-06-08 05:20] VITALS: BP 123/57; PULSE 68; RESP 18; O2SAT 100
== END 2025-06-08 05:22 | disposition home or self-care (01) ==
PROVIDERS: Emergency Provider Emergency Medicine; PCP Internal Medicine
DX: R04.0 Epistaxis (principal); I10 Essential (primary) hypertension; E78.5 Hyperlipidemia, unspecified; Z90.49 Acquired absence of other specified parts of digestive tract; Z96.659 Presence of unspecified artificial knee joint; Z79.01 Long term (current) use of anticoagulants; Z79.899 Other long term (current) drug therapy
CPT/HCPCS: 99281

== ENCOUNTER 2025-06-08 08:23 | Emergency (ER) | payer MEDICARE, SELFPAY ==
--- OUTSIDE RECORDS SUMMARY | 2010-03-25 10:15 | XMS_ITS | Continuity of Care Document ---
Author Organization [facility] Address [address] [place] [address] Phone Care Team Providers Care Bus Info Consultant Name Role Phone Duong Duffy Unavailable Unavailable Procedures Procedure Date Eye Exam & Treatment Refraction Office/outpatient Visit, Est Office/outpatient Visit, Est Office/outpatient Visit, Est Advance Directives Directive Yes / No Effective Date File Name No Information Encounters Encounter Description Practice Location Reason(s) For Visit Diagnoses Date Provider Providers Copied on Encounter [facility], [address] [place] [address] [address], [place], [place], [id number], [place] tel:[phone] SEC [facility] No Information 5 0 Loboishnasamy Duong. [address], [facility], [place]. tel:[phone] Office/outpat ient Visit, [facility], [address] [place] [address] [address], [place], [place], [id number], [place] tel:[phone] [facility] No Information Dickson-0 1-201 0 Krishnasamy Duong. [address] [facility] [address], [place], [address], [place]. tel:[phone] Office/outpat ient Visit, [facility], [address] [place] [address] [address], [place], [place], [id number], [place] tel:[phone] SEC [facility] No Information 0 Tati Duong. [address], [address], [place]. tel:[phone] Office/outpat ient Visit, [facility], [address], [place], [place], [id number], tel:[phone] [facility] No Information 0 Tati Duong. [address], [address], [place]. tel:[phone] Family History Family Member Type Diagnosis Age At Onset No Information Payers Payer name Insurance type Covered libertarian ID Nilton ramona(s) [employer] Plan [id number] Social History Type Description Quantity Date Captured Comments Sex Female Smoking Status No Information Chief Complaint And Reason For Visit No Information Reason For Referral Reason For Referral No Information History Of Present Illness Encounter Date Complaint History Of Prese nt Illness No Information Functional Status Date Functional Assessmen t No Information Instructions Date Instruction Additional Infor mation No Information Assessments Type Assessment Date No Information Patient Care Teams Name Effective Dates (start - stop) Status Members No Information
--- OUTSIDE RECORDS SUMMARY | 2010-03-25 10:15 | XMS_ITS | Continuity of Care Document ---
Author Organization [facility] Address [address] [place] [address] Phone Care Team Providers Care Logistics Planner Name Role Phone Duong Duffy Unavailable Unavailable Procedures Procedure Date Eye Exam & Treatment Refraction Office/outpatient Visit, Est Office/outpatient Visit, Est Office/outpatient Visit, Est Advance Directives Directive Yes / No Effective Date File Name No Information Encounters Encounter Description Practice Location Reason(s) For Visit Diagnoses Date Provider Providers Copied on Encounter [facility], [address] [place] [address] [address], [place], [place], [id number], [place] tel:[phone] SEC [facility] No Information 5 0 Loboishnasamy Duong. [address], [facility], [place]. tel:[phone] Office/outpat ient Visit, [facility], [address] [place] [address] [address], [place], [place], [id number], [place] tel:[phone] SEC [facility] No Information Dickson-0 1-201 0 Krishnasamy Duong. [address] [facility] [address], [place], [address], [place]. tel:[phone] Office/outpat ient Visit, [facility], [address] [place] [address] [address], [place], [place], [id number], [place] tel:[phone] [facility] No Information 0 Tati Duong. [address], [address], [place]. tel:[phone] Office/outpat ient Visit, [facility], [address], [place], [place], [id number], tel:[phone] [facility] No Information 0 Tati Duong. [address], [address], [place]. tel:[phone] Family History Family Member Type Diagnosis Age At Onset No Information Payers Payer name Insurance type Covered green party ID Nilton ramona(s) [employer] Plan [id number] Social History Type Description Quantity Date Captured [...]
--- OUTSIDE RECORDS SUMMARY | 2025-06-08 08:27 | XMS_ITS | Encounter Summary ---
Author Organization [facility] Address [address] [address] Care Team Providers Care Glass Beveler Name Role Phone Leo Palacios MD Primary Care Provider Encounter Details Date Type Department Care Team (Late st Contact Info) Description 02/09/2017 Orders Only [facility] ProviderNara MD [address] [place] [address] Social History Tobacco Use Types Packs/Day Years Used Date Smoking Tobacco: Never Alcohol Use Standard Drinks/Week Comments No 0 (1 standard drink = 0.6 oz pur e alcohol) Comments Unknown Sex and Gender Information Value Date Recorded Sex Assigned at Not on file Legal Sex Female 1:43 AM SCIENTIFIC DIVER Gender Identity Not on file Sexual Orientation [...] on filedocumented in this encounter Care Teams Glass Beveler Relationship Specialty Start Date End Date Leo Palacios MD PCP - General 01/08/17 documented as of this encounter
--- OUTSIDE RECORDS SUMMARY | 2025-06-08 08:27 | XMS_ITS | Encounter Summary ---
Author Organization [facility] Healthcare Address [address] [place] [address] Care Team Providers Care Custom Designer Name Role Phone Leo Palacios MD Primary Care Provider Encounter Details Date Type Department Care Team (Late st Contact Info) Description 05/26/2024 Orders Only [facility] Health Information Management [address] [place] [address] Scanning, Provider Social History Tobacco Use Types Packs/Day Years Used Date Smoking Tobacco: Never Smokeless Tobacco: Never Alcohol Use Standard Drinks/Week Comments No 0 (1 standard drink = 0.6 oz pur e alcohol) Comments Unknown Sex and Gender Information Value Date Recorded Sex Assigned at Not on file Legal Sex Female 1:43 AM STNA Gender Identity Not on file Sexual Orientation [...] on filedocumented in this encounter Care Teams Custom Designer Relationship Specialty Start Date End Date Leo Palacios MD PCP - General 01/08/17 documented as of this encounter
--- OUTSIDE RECORDS SUMMARY | 2025-06-08 08:27 | XMS_ITS | Encounter Summary ---
Author Organization [facility] Healthcare Address [address] [place] [address] Care Team Providers Care Restorative Coordinator Name Role Phone Leo Palacios MD Primary Care Provider Encounter Details Date Type Department Care Team (Late st Contact Info) Description 06/06/2025 Orders Only [facility] Cardiology [address] [facility] [address] [place] [address] ProviderNara MD [address] [place], [place] [id number] Social History Tobacco Use Types Packs/Day Years Used Date Smoking Tobacco: Never Smokeless Tobacco: Never Alcohol Use Standard Drinks/Week Comments No 0 (1 standard drink = 0.6 oz pur e alcohol) Comments Unknown Sex and Gender Information Value Date Recorded Sex Assigned at Not on file Legal Sex Female 1:43 AM TYPESETTING SUPERVISOR Gender Identity Not on file Sexual Orientation [...] on filedocumented in this encounter Care Teams Restorative Coordinator Relationship Specialty Start Date End Date Leo Palacios MD PCP - General 01/08/17 documented as of this encounter
--- OUTSIDE RECORDS SUMMARY | 2025-06-08 08:27 | XMS_ITS | Clinical Summary ---
Author Organization [facility] Address [address] [place] [address] Phone Care Team Providers Care Legal Support Manager Name Role Phone Leo Palacios MD Primary Care Provider [phone] Allergies Active Allergy Reactions Criticality Noted Date Comments Atorvastatin Cough,muscle pain Low 04/29/2021 Ezetimibe muscle pain 04/29/2021 Rivaroxaban 05/20/2022 Rosuvastatin 05/20/2022 Sulfa Antibiotics Rash Medium 02/02/2020 Medications apixaban (Eliquis) 5 MG tablet Eliquis 5 mg tablet 1 Active carboxymethylce llulose (REFRESH PLUS) 0.5 % ophthalmic solution Administer 1 drop into affected eye(s) Active cycloSPORINE (Restasis) 0.05 % ophthalmic emulsion Restasis 0.05 % eye drops in a dropperette INSTILL 1 DROP INTO AFFECTED EYE(S) BY OPHTHALMIC ROUTE EVERY 12 HOURS 3 Active ferrous sulfate 325 (65 Fe) MG tablet ferrous sulfate 325 mg (65 mg iron) tablet Take 1 tablet every day by oral route. 0 Active Advair Diskus 250-50 MCG/DOSE diskus inhaler 1 Active furosemide (LASIX) 20 MG tablet furosemide 20 mg tablet TAKE 1 TABLET (20 MG TOTAL) BY MOUTH DAILY NEEDED FOR SWELLING 1 Active levothyroxine (SYNTHROID) 100 MCG tablet 1 Active rosuvastatin (CRESTOR) 20 MG tablet 1 Active telmisartan (MICARDIS) 40 MG tablet 1 Active cyanocobalamin (VITAMIN B-12) 1000 MCG tablet Take 500 mcg by mouth daily Active baclofen (LIORESAL) 10 MG tablet Take 10 mg by mouth 4 (four) times a day 2 Active benzonatate (TESSALON) 200 MG capsule TAKE 1 CAPSULE BY MOUTH THREE TIMES A DAY 2 Active diphenoxylate-a tropine (LOMOTIL) 2.5-0.025 MG per tablet TAKE 1 TABLET BY MOUTH EVERY 6 HOURS NEEDED FOR DIARRHEA 2 Active Active Problems Problem Noted Date Diagnosed Date Full thickness rotator cuff tear 05/14/2022 Pain of right knee joint 04/16/2022 Cough 03/02/2022 Bilateral shoulder joint pain 02/19/2022 Rotator cuff arthropathy of right shoulder 02/19 Diarrhea 02/11/2022 Chronic kidney disease stage 3B 02/02/2022 Abnormal renal function 04/29/2021 Anemia 04/29/2021 Asthma 04/29/2021 Osteoarthritis of knee 04/29/2021 Disorder of sacrum 04/29/2021 Enthesopathy of hip region 04/29/2021 Gastroesophageal reflux disease 04/29/2021 Hip pain 04/29/2021 History of polyp of colon 04/29/2021 Hydronephrosis 04/29/2021 Hypothyroidism 04/29/2021 Implantation of joint prosthesis 04/29/2021 Iron deficiency anemia 04/29/2021 Knee pain 04/29/2021 Localized, primary osteoarth ritis of the pelvic region and thigh 04/29/2021 Osteoarthritis of hip 04/29/2021 Pernicious anemia 04/29/2021 Pure hypercholesterolemia 04/29/2021 Rosacea 04/29/2021 Serum creatinine abnormal 04/29/2021 Sick sinus syndrome 04/29/2021 Spinal enthesopathy 04/29/2021 Syncope 04/29/2021 Third degree uterine prolapse 04/29/2021 Urinary tract infectious disease 04/29/2021 Venous stasis 04/29/2021 Bilateral lower limb edema 12/12/2020 Shoulder pain 07/04/2020 Long-term current use of anticoagulant 9 Aortic stenosis, non-rheumatic 03/16/2017 Benign essential hypertension 03/16/2017 Hyperlipidemia 03/16/2017 Peripheral vascular disease 03/16/2017 Presence of cardiac pacemaker 03/16/2017 Overview (04/29/2021): [employer] Checo dual Pacemaker Dx; CHB, PAF. DOI 07/16/2014, chronic atrial lead 01/20/11. Lane remote home monitoring Q3 mo, office pacer checks Q1 year. Atrial fibrillation 09/13/2014 Overview (04/29/2021): Atrial fibrillation Complete atrioventricular block 09/13/2014 Overview (04/29/2021): Complete atrioventricular block Immunizations Immunization Administration Dates Next Due Influenza Split High Dose Pr eservative Free IM 08/21/2019,07/07/2018,08/05/2017 Influenza TIV (IM) 07/13/2016,08/29/2014, 013 Influenza, Injectable, Quadrivalent 07/09/2022,0 07/04/2021,09/26/2015 Pneumococcal Conjugate 13-Valent 10/30/2015 Pneumococcal Polysaccharide 07/11/1999 Sars-cov-2, Unspecified 12/17/2020,11/19/2020 TD Preservative Free 05/31/2019 Td, Unspecified 05/31/2019 Family History Medical History Relation Comments Heart disease Brother Heart disease Father Breast cancer Mother Stroke Mother Relation Status Comments Brother Father Mother Social History Tobacco Use Types Packs/Day Years Used Date Smoking Tobacco: Never Smokeless Tobacco: Never Tobacco Cessation:Counseling Given: Not Answered Alcohol Use Standard Drinks/Week Comments Not Currently 0 (1 standard drink = 0.6 oz pur e alcohol) Comments Unknown Sex and Gender Information Value Date Recorded Sex Assigned at Not on file Legal Sex Female 12:59 PM MDT Gender Identity Not on file Sexual Orientation Not on file Last Filed Vital Signs Vital Sign Reading Time Taken Comments Blood Pressure 130/72 09/23/2022 11:03 AM BICYCLE I ASSEMBLER Pulse - - Temperature 35.9 C (96.7 F) 09/23/2022 11:03 AM BICYCLE I ASSEMBLER Respiratory Rate 18 09/23/2022 11:03 AM BICYCLE I ASSEMBLER Oxygen Saturation - - Inhaled Oxygen Concentration - - Weight 88 kg (194 lb) 09/23/2022 11:03 AM BICYCLE I ASSEMBLER Height 170.2 cm (5' 7) 09/23/2022 11:03 AM BICYCLE I ASSEMBLER Body Mass Index 30.38 09/23/2022 11:03 AM BICYCLE I ASSEMBLER Plan of Treatment Health Maintenance Due Date Last Done Comments Pneumococcal PPSV23/PCV13 65 + Years / Low and Medium Risk (3 of 3 - PCV20 or PCV21) 10/30/2020 10/30/2015, 07/11/1999 Influenza Vaccine (#1) 2025 6, 08/29/2014, 07/19/2013 Insurance [employer] MEDICARE ADVANTAGE Care Teams Legal Support Manager Relationship Specialty Start Date End Date Leo Palacios MD [address] [address] PCP - General Internal Medicine 04/17/21
--- OUTSIDE RECORDS SUMMARY | 2025-06-08 08:27 | XMS_ITS | Clinical Summary ---
Author Organization [facility] [address] Address [address] [place] [address] Care Team Providers Care Plastic Welder Name Role Phone Leo Palacios MD Primary [...] 1 tablet (100 mcg total) by mouth second hand before breakfast 08/11/20 18 Active cyanocobalamin (Vitamin [...] Chronic V-lead 07/16/2014, chronic atrial lead 01/20/11. Amasa remote monitoring. Programmed VVI-Bill Single PM. Peripheral artery disease 03/16/2017 Hyperlipidemia LDL goal <70 03/16/2017 Essential hypertension, benign 03/16/2017 Non-rheumatic aortic stenosis 03/16/2017 Complete atrioventricular block 09/13/2014 Overview (01/16/2017): Complete atrioventricular block Atrial fibrillation 09/13/2014 Overview (01/16/2017): Atrial fibrillation Encounters Date Type Department Care Team Description 06/06/2025 9:30 AM CDT Office Visit [facility] Cardiology [address] [place] [address] Tony Figueroa MD Bilateral carotid artery stenosis (Primary Dx); Essential hypertension, benign; Hyperlipidemia LDL goal <70; Non-rheumatic aortic stenosis; Presence of cardiac pacemaker; Chronic anticoagulation; Paroxysmal atrial fibrillation (HCC) 06/06/2025 Orders Only [facility] Cardiology [address] [place] [address] ProviderNara MD 03/27/2025 8:15 AM CDT Ancillary Procedure [facility] Medical [facility] Cardiology [address] [facility] [address], [place] [address] Presence of cardiac pacemaker (Primary [...] on file Legal Sex Female 1:43 AM IMPLEMENTATION MANAGER Gender Identity Not on file Sexual Orientation [...] history exists Medical Devices Implanted Type Area Supervisor Respiratory Device Identifier Shelf Expiration Date Model / Serial / Lot [employer] Optisense 7fr 46cm Is-1 Bipolar Connector Optim Insulation-09/2011 Implanted:09/2011 (Quantity not on file) Lead Right: Chest [employer] Inc / [id number] / [employer] 2087tc/ Tendril Sts 6fr 52cm Is-1 Connector Active Fixation Bipolar Soft- Implanted:03/2014 (Quantity not on file) Lead Right: Chest [employer] 8TC/52 / [id number] / Pacemaker-07/16/2014 Implanted:03/2014 (Quantity not on file) Pacemaker Chest [employer] CHB, PAF ASSURITY DR Genao0 / [id number] / Description:Chronic Atrial l ead 01/20/2011. Procedures [...] PAF. DOI 07/16/2014, chronic atrial lead 01/20/11. Amasa remote home monitoring Q3 mo, office pacer checks Q1 year. Routine VVI Pacemaker Remote. Transmission attached. Battery status: 3.01 V , 9.1-9.5 years remaining battery life to ESMER. Stable lead impedances, pacing and sensing thresholds. Presenting rhythm: DESIGN ENGINEERING MANAGER DESIGN ENGINEERING MANAGER-90% No AT/AF episodes noted. No Ventricular high rate episodes detected. Medications: Eliquis 5 mg See scanned report. Office pacemaker follow up: 07/11/25 Amasa remote f/u 06/26/25. Raudel Thomas RN Tony Figueroa MD [facility] Final Result from Last 3 Months Insurance [facility] MEDICARE ADVANTAGE [facility] MEDICARE Address: [address] [address] [place] [address] [facility] Address: [address] [address] [place] [address] [facility] MEDICARE Address: [address] [address] [place] [address] Care Teams Plastic Welder Relationship Specialty Start Date End Date Leo Palacios MD PCP - General 01/08/17
--- OUTSIDE RECORDS SUMMARY | 2025-06-08 08:27 | XMS_ITS | Encounter Summary ---
Author Organization [facility] Address [address] [address] Care Team Providers Care Bed Rubber Name Role Phone Leo Palacios MD Primary Care Provider Leo Palacios MD Primary Care Provider Encounter Details Date Type Department Care Team (Late st Contact Info) Description 11/10/2016 Orders Only [facility] ProviderNara MD [facility] [place] [address] Social History Tobacco Use Types Packs/Day Years Used Date Smoking Tobacco: Never Alcohol Use Standard Drinks/Week Comments No 0 (1 standard drink = 0.6 oz pur e alcohol) Comments Unknown Sex and Gender Information Value Date Recorded Sex Assigned at Not on file Legal Sex Female 1:43 AM CHAIRMAN PRESIDENT AND CHIEF EXECUTIVE OFFICER Gender Identity Not on file Sexual Orientation [...] on filedocumented in this encounter Care Teams Bed Rubber Relationship Specialty Start Date End Date Leo Palacios MD PCP - General 01/08/17 Leo Palacios MD PCP - General 12/29/10 01/07/17 documented as of this encounter
[2025-06-08 08:36] VITALS: BP 160/68; PULSE 62; RESP 18; TEMP 36.3; O2SAT 100
--- OUTSIDE RECORDS SUMMARY | 2025-06-08 09:13 | XMS_ITS | Clinical Summary ---
Author Organization [facility] [address] Address [address] [place] [address] Care Team Providers Care Diesel Tractor Engine Mechanic Name Role Phone Leo Palacios MD Primary [...] 1 tablet (100 mcg total) by mouth plum packer before breakfast 08/11/20 18 Active cyanocobalamin (Vitamin [...] Chronic V-lead 07/16/2014, chronic atrial lead 01/20/11. [place] remote monitoring. Programmed VVI-Bill Single PM. Peripheral artery disease 03/16/2017 Hyperlipidemia LDL goal <70 03/16/2017 Essential hypertension, benign 03/16/2017 Non-rheumatic aortic stenosis 03/16/2017 Complete atrioventricular block 09/13/2014 Overview (01/16/2017): Complete atrioventricular block Atrial fibrillation 09/13/2014 Overview (01/16/2017): Atrial fibrillation Encounters Date Type Department Care Team Description 06/06/2025 9:30 AM CDT Office Visit [facility] Cardiology [address] [place] [address] Tony Figueroa MD Bilateral carotid artery stenosis (Primary Dx); Essential hypertension, benign; Hyperlipidemia LDL goal <70; Non-rheumatic aortic stenosis; Presence of cardiac pacemaker; Chronic anticoagulation; Paroxysmal atrial fibrillation (HCC) 06/06/2025 Orders Only [facility] Cardiology [address] [place] [address] ProviderNara MD 03/27/2025 8:15 AM CDT Ancillary Procedure [facility] Medical [facility] Cardiology [address] [facility] [address], [place] [address] Presence of cardiac pacemaker (Primary [...] on file Legal Sex Female 1:43 AM CELL TUBER MACHINE Gender Identity Not on file Sexual Orientation [...] history exists Medical Devices Implanted Type Area Log Snaker Device Identifier Shelf Expiration Date Model / Serial / Lot [employer] Optisense 7fr 46cm Is-1 Bipolar Connector Optim Insulation-09/2011 Implanted:09/2011 (Quantity not on file) Lead Right: Chest [employer] / [id number] / [employer] 2087tc/ Tendril Sts 6fr 52cm Is-1 Connector Active Fixation Bipolar Soft- Implanted:03/2014 (Quantity not on file) Lead Right: Chest [employer] 8TC/52 / [id number] / Pacemaker-07/16/2014 Implanted:03/2014 (Quantity not on file) Pacemaker Chest [employer] CHB, PAF ASSURITY DR Genao0 / [id number] / Description:Chronic Atrial l ead 01/20/2011. Procedures [...] PAF. DOI 07/16/2014, chronic atrial lead 01/20/11. [employer] remote home monitoring Q3 mo, office pacer checks Q1 year. Routine VVI Pacemaker Remote. Transmission attached. Battery status: 3.01 V , 9.1-9.5 years remaining battery life to ESMER. Stable lead impedances, pacing and sensing thresholds. Presenting rhythm: PLUMBING ENGINEERING DRAFTSPERSON PLUMBING ENGINEERING DRAFTSPERSON-90% No AT/AF episodes noted. No Ventricular high rate episodes detected. Medications: Eliquis 5 mg See scanned report. Office pacemaker follow up: 07/11/25 [employer] remote f/u 06/26/25. Raudel Thomas RN Tony Figueroa MD [facility] Final Result from Last 3 Months Insurance [facility]ICARE ADVANTAGE [facility] Address: [address] [address] [place] [address] [facility] Address: [facility] [address] [place] [address] [facility] Address: [address] [address] [place] [address] Care Teams Diesel Tractor Engine Mechanic Relationship Specialty Start Date End Date Leo Palacios MD PCP - General 01/08/17
--- OUTSIDE RECORDS SUMMARY | 2025-06-08 09:13 | XMS_ITS | Clinical Summary ---
Author Organization [facility] Address [address] [place] [phone] Phone Care Team Providers Care Solar Maintenance Technician Name Role Phone Leo Palacios MD Primary Care Provider [phone] Allergies Active Allergy Reactions Criticality Noted Date [...] Comments Blood Pressure 130/72 09/23/2022 11:03 AM GOLF CART REPAIRER Pulse - - Temperature 35.9 C (96.7 F) 09/23/2022 11:03 AM GOLF CART REPAIRER Respiratory Rate 18 09/23/2022 11:03 AM GOLF CART REPAIRER Oxygen Saturation - - Inhaled Oxygen Concentration - - Weight 88 kg (194 lb) 09/23/2022 11:03 AM GOLF CART REPAIRER Height 170.2 cm (5' 7) 09/23/2022 11:03 AM GOLF CART REPAIRER Body Mass Index 30.38 09/23/2022 11:03 AM GOLF CART REPAIRER Plan of Treatment Health Maintenance Due Date Last Done Comments Pneumococcal PPSV23/PCV13 65 + Years / Low and Medium Risk (3 of 3 - PCV20 or PCV21) 10/30/2020 10/30/2015, 07/11/1999 Influenza Vaccine (#1) 2025 6, 08/29/2014, 07/19/2013 Insurance [employer] MEDICARE ADVANTAGE Care Teams Solar Maintenance Technician Relationship Specialty Start Date End Date Leo Palacios MD [address] [phone] PCP - General Internal Medicine 04/17/21
--- OUTSIDE RECORDS SUMMARY | 2025-06-08 09:14 | XMS_ITS | Encounter Summary ---
Author Organization [facility] Address [address] [address] Care Team Providers Care Real Estate Assessor Name Role Phone Leo Palacios MD Primary Care Provider Encounter Details Date Type Department Care Team (Late st Contact Info) Description 02/09/2017 Orders Only [facility] ProviderNara MD [address] [place] [address] Social History Tobacco Use Types Packs/Day Years Used Date Smoking Tobacco: Never Alcohol Use Standard Drinks/Week Comments No 0 (1 standard drink = 0.6 oz pur e alcohol) Comments Unknown Sex and Gender Information Value Date Recorded Sex Assigned at Not on file Legal Sex Female 1:43 AM PHYSICIAN PRACTICE CONSULTANT Gender Identity Not on file Sexual Orientation [...] on filedocumented in this encounter Care Teams Real Estate Assessor Relationship Specialty Start Date End Date Leo Palacios MD PCP - General 01/08/17 documented as of this encounter
--- OUTSIDE RECORDS SUMMARY | 2025-06-08 09:14 | XMS_ITS | Encounter Summary ---
Author Organization [facility] Healthcare Address [address] [place] [address] Care Team Providers Care Pediatric Rn Name Role Phone Leo Palacios MD Primary Care Provider Encounter Details Date Type Department Care Team (Late st Contact Info) Description 05/26/2024 Orders Only [facility] [place] Information Management [address] [place] [phone] Scanning, Provider Social History Tobacco Use Types Packs/Day Years Used Date Smoking Tobacco: Never Smokeless Tobacco: Never Alcohol Use Standard Drinks/Week Comments No 0 (1 standard drink = 0.6 oz pur e alcohol) Comments Unknown Sex and Gender Information Value Date Recorded Sex Assigned at Not on file Legal Sex Female 1:43 AM SPUDDER Gender Identity Not on file Sexual Orientation [...] on filedocumented in this encounter Care Teams Pediatric Rn Relationship Specialty Start Date End Date Leo Palacios MD PCP - General 01/08/17 documented as of this encounter
--- OUTSIDE RECORDS SUMMARY | 2025-06-08 09:14 | XMS_ITS | Encounter Summary ---
Author Organization [facility] Address [address] [address] Care Team Providers Care Carbon Plant Grinder Name Role Phone Leo Palacios MD Primary Care Provider Leo Palacios MD Primary Care Provider Encounter Details Date Type Department Care Team (Late st Contact Info) Description 11/10/2016 Orders Only [facility] ProviderNara MD [facility] [place] [address] Social History Tobacco Use Types Packs/Day Years Used Date Smoking Tobacco: Never Alcohol Use Standard Drinks/Week Comments No 0 (1 standard drink = 0.6 oz pur e alcohol) Comments Unknown Sex and Gender Information Value Date Recorded Sex Assigned at Not on file Legal Sex Female 1:43 AM CHAMBER MAGISTRATE Gender Identity Not on file Sexual Orientation [...] on filedocumented in this encounter Care Teams Carbon Plant Grinder Relationship Specialty Start Date End Date Leo Palacios MD PCP - General 01/08/17 Leo Palacios MD PCP - General 12/29/10 01/07/17 documented as of this encounter
--- OUTSIDE RECORDS SUMMARY | 2025-06-08 09:14 | XMS_ITS | Encounter Summary ---
Author Organization [facility] Healthcare Address [address] [place] [address] Care Team Providers Care Analyzer Sales Name Role Phone Leo Palacios MD Primary Care Provider Encounter Details Date Type Department Care Team (Late st Contact Info) Description 06/06/2025 Orders Only [facility] Cardiology [address] [facility] [address] [place] [address] ProviderNara MD [address] [place], [place] [id number] Social History Tobacco Use Types Packs/Day Years Used Date Smoking Tobacco: Never Smokeless Tobacco: Never Alcohol Use Standard Drinks/Week Comments No 0 (1 standard drink = 0.6 oz pur e alcohol) Comments Unknown Sex and Gender Information Value Date Recorded Sex Assigned at Not on file Legal Sex Female 1:43 AM SLAT TWISTER Gender Identity Not on file Sexual Orientation [...] on filedocumented in this encounter Care Teams Analyzer Sales Relationship Specialty Start Date End Date Leo Palacios MD PCP - General 01/08/17 documented as of this encounter
--- NOTE | 2025-06-08 10:24 | ED.EPISTAXIS ---
HPI - Epistaxis General Chief complaint: Epistaxis Stated complaint: returning w/ nose bleed Time Seen by Provider: 06/08/25 09:01 Source: patient and old records reviewed Mode of arrival: ambulatory Limitations: no limitations History of Present Illness HPI Narrative: Patient is an 85-year-old female who presents the ED with report of a nosebleed. Patient reports she was seen in the ED earlier today for a right-sided epistaxis. Resolved with direct pressure. She states she went home and attempted to clean her face and began having recurrent bleeding. Complains of bleeding mostly from her right nare. She is on eliquis d/t hx of afib. Denies dizziness/lightheadedness, trauma. Related Data Home Medications ?Medication ?Instructions ?Recorded ?Confirmed ?Last Taken ?Type apixaban 5 mg tablet (Eliquis) 5 mg PO BID 01/26/23 02/07/25 05/22/24 17:00 History carboxymethyl 0.5 %-glycerin 1 1 drp EACH EYE QHS 01/26/23 02/07/25 05/25/24 History %-polysorb 80 0.5 %-PF eye dropperette (Refresh Optive Umer-3 (PF)) cholecalciferol (vitamin D3) 50 50 mcg PO DAILY 01/26/23 02/07/25 05/25/24 History mcg (2,000 unit) capsule ferrous sulfate 325 mg (65 mg 325 mg PO DAILY 01/26/23 02/07/25 05/25/24 History iron) tablet levothyroxine 100 mcg capsule 100 mcg PO DAILY 01/26/23 02/07/25 05/26/24 History rosuvastatin 20 mg tablet 20 mg PO DAILY 01/26/23 02/07/25 05/26/24 History telmisartan 40 mg tablet 40 mg PO DAILY 01/26/23 02/07/25 05/26/24 History omeprazole 20 mg capsule,delayed 20 mg PO DAILY 02/02/24 02/07/25 05/26/24 History release mecobalamin (vitamin B12) 1,000 500 mcg sublingual DAILY 05/25/24 02/07/25 05/25/24 History mcg disintegrating tablet,sublingual Allergies Allergy/AdvReac Type Severity Reaction Status Date / Time atorvastatin Allergy Mild Rash Verified 02/07/25 09:17 rivaroxaban Allergy Mild Rash Verified 02/07/25 09:17 Sulfa (Sulfonamide Allergy Unknown Unknown Verified 02/07/25 09:17 Antibiotics) lisinopril AdvReac Mild COUGH Verified 02/07/25 09:17 Review of Systems Review of Systems: All systems reviewed & are unremarkable except as noted in HPI. All systems reviewed & are unremarkable except as noted in HPI and below PMFSH Past Medical History Medical History Hyperlipidemia Hypertension Cataract fragments in both eyes following surgery Varicose vein of leg No pertinent past medical history Surgical History Surgical History Total knee replacement status History of cholecystectomy Family History Family History Father Hypertension Heart disease Mother Breast cancer Hypertension Cerebrovascular accident Sibling Cerebrovascular accident Grandparent Hypertension Social History Social History Smoking status: Never smoker Alcohol intake: never Substance use: never Lack of Transportation: No Lack of Food: Never True Current Housing: I Have Housing Concerned About Future Housing: No Difficulty Paying Gas/Electric Bills: No Difficulty Paying for Meds: No Currently Unemployed: No Education: Associate Degree Difficulty w/ Childcare or Family Care: No Living arrangements: with family Gender identity (if verbalized by the patient): Female Spiritual care concerns: No Exam Narrative: GENERAL: Well appearing, obese with BMI of 33.5, non-toxic, in no acute distress. HEAD: Normocephalic, atraumatic. ENT: No active epistaxis, mild erythema noted to external nose. Small amount of dry blood in bilateral inferior nares. No septal hematoma. RESPIRATORY: Airway patent, respirations nonlabored. CARDIOVASCULAR: Regular rate and rhythm MUSCULOSKELETAL: Moves all extremities. No gross deformities. SKIN: Warm, dry, normal color. NEURO: A&O X3. Speech clear. PSYCHIATRIC: Appropriate mood and affect. Normal interaction. Course Vital Signs Vital signs: Vital Signs Temperature 97.4 F L 06/08/25 08:36 Pulse Rate 62 06/08/25 08:36 Respiratory Rate 18 06/08/25 08:36 Blood Pressure 160/68 H 06/08/25 08:36 Pulse Oximetry 100 06/08/25 08:36 Oxygen Delivery Room Air 06/08/25 08:36 Temperature 97.4 F L 06/08/25 08:36 Pulse Rate 62 06/08/25 08:36 Respiratory Rate 18 06/08/25 08:36 Blood Pressure 160/68 H 06/08/25 08:36 Pulse Oximetry 100 06/08/25 08:36 Oxygen Delivery Room Air 06/08/25 08:36 MDM - Epistaxis MDM Narrative Medical decision making narrative: Presented with epistaxis on Eliquis. Seen in the ED earlier today for similar symptoms. Nasal clamp placed upon arrival to the ED today. Upon my evaluation, no active bleeding. Patient was monitored in the ED for approximately 2 hours and has not had any recurrence of epistaxis. Feel she is safe for discharge home at this time. Will refer to ENT for further eval if needed. Discussed further nosebleed management. Given return precautions. Discharged in stable condition. Vital signs otherwise stable. Patient hemodynamically stable. Medical Records Attestation: I reviewed the patient's medical records. Discharge Plan Discharge Clinical Impression: Anterior epistaxis, Chronic anticoagulation Patient Disposition: Home Condition: Stable Instructions: Antibiotic Form, Nosebleed (ED) Additional Instructions: Follow up with ENT for further evaluation if needed. Avoid rubbing or blowing your nose for the next few days. Recommend humidifier or placing Vaseline inside nostrils at night to avoid drying out. You may also use nasal spray/saline spray to nose to keep moist. If bleeding recurs, utilize Afrin to nostrils and place nasal clamp for approximately 30 minutes. Do not adjust or move the clamp for at least 30 minutes. If bleeding does still persistent after 30 minutes, replace clamp for an additional 15 minutes. If bleeding is still persistent after 1 hour, return to the ED for further evaluation. Additionally, return if you experience severe pain, weakness, passing out, significant dizziness, or any other symptoms of concern. Patient Language: Yakut Prescriptions: New Afrin (oxymetazoline) 0.05 % mist 2 spray intranasal Q12H PRN (Reason: nasal congestion) 3 Days Qty: 15 0RF No Action omeprazole 20 mg capsule,delayed release(DR/EC) 20 mg PO DAILY telmisartan 40 mg tablet 40 mg PO DAILY levothyroxine 100 mcg capsule 100 mcg PO DAILY rosuvastatin 20 mg tablet 20 mg PO DAILY Eliquis 5 mg tablet 5 mg PO BID ferrous sulfate 325 mg (65 mg iron) tablet 325 mg PO DAILY cholecalciferol (vitamin D3) 50 mcg (2,000 unit) capsule 50 mcg PO DAILY Refresh Optive Umer-3 (PF) 0.5-1-0.5 % dropperette 1 drp EACH EYE QHS mecobalamin (vitamin B12) 1,000 mcg Tablet,Disintegrating 500 mcg SUBLINGUAL DAILY Rx Instructions: place tablet under tongue and allow to dissolve for at least30 secs before swallowing Follow-up/Referrals: Nitesh Eckert MD [Physician, Ear, Nose, Throat] Referral Note: ENT Palacios,Leo Castro MD [Primary Care Provider] Time of Disposition: 10:25
== END 2025-06-08 10:41 | disposition home or self-care (01) ==
PROVIDERS: Emergency Provider Physician Assistant; PCP Internal Medicine
DX: R04.0 Epistaxis (principal); I48.91 Unspecified atrial fibrillation; Z79.01 Long term (current) use of anticoagulants; E78.5 Hyperlipidemia, unspecified; I10 Essential (primary) hypertension; Z90.49 Acquired absence of other specified parts of digestive tract; Z96.659 Presence of unspecified artificial knee joint
CPT/HCPCS: 99283

== ENCOUNTER 2025-07-12 09:47 | Outpatient (CLI) | payer MEDICARE, SELFPAY ==
--- OUTSIDE RECORDS SUMMARY | 2025-07-11 10:30 | XMS_ITS | Encounter Summary ---
Author Organization [facility] Healthcare Address [address] [place] [address] Care Team Providers Care Swimmer Name Role Phone Leo Palacios MD Primary Care Provider Reason for Visit * Cardiology (Routine) - Closed Specialty Diagnoses / Procedures Referred By Contwilfredo t Referred To Contact Diagnoses CHB (complete heart block) Paroxysmal atrial fibrillation (HCC) Presence of cardiac pacemaker Procedures DEVICE CHECK - IN OFFICE Tony Figueroa MD [address] [facility] [address] [facility] [address] [place] [address] Phone: tel: fax: [facility] Medical Group Referral ID Status Reason Start Date Expiration Date Visits Re quested Visits Authorized [id number] Closed 08/04/2022 09/03/2023 1 1 Encounter Details Date Type Department Care Team (Latest Contact Info) Description 07/11/2025 10:30 AM CDT Ancillary Procedure [facility] Cardiology [address] [place] [address] CHB (complete heart block); Paroxysmal atrial fibrillation (HCC); Presence of cardiac pacemaker Social History Tobacco Use Types Packs/Day Years Used Date Smoking Tobacco: Never Smokeless Tobacco: Never Alcohol Use Standard Drinks/Week Comments No 0 (1 standard drink = 0.6 oz pur e alcohol) Comments Unknown Sex and Gender Information Value Date Recorded Sex Assigned at Not on file 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 Gender Identity Not on file Sexual Orientation Not on file documented as of this encounter Plan of Treatment Pending Results Name Type Priority Associated Diagnoses Date /Time DEVICE CHECK - IN OFFICE Cardiac Services Routine CHB (complete heart block) Paroxysmal atrial fibrillation (HCC) Presence of cardiac pacemaker 07/11/2025 10:10 AM CDT documented as of this encounter Visit Diagnoses Diagnosis CHB (complete heart block) Atrioventricular block, complete Paroxysmal atrial fibrillation (HCC) Atrial fibrillation Presence of cardiac pacemaker Cardiac pacemaker in situ documented in this encounter Care Teams Swimmer Relationship Specialty Start Date End Date Leo Palacios MD PCP - General 01/08/17 documented as of this encounter
--- NOTE | ~2025-07-12 | MM_ITS ---
EXAMINATION: MM screening jj BI w shmuel HISTORY: Screening TECHNIQUE: Craniocaudal and mediolateral oblique 3-D tomosynthesis images were obtained and synthetic 2-D images were generated. CAD analysis was submitted and interpreted. COMPARISON: No prior mammogram is available for comparison at this institution. BREAST PARENCHYMAL COMPOSITION: Not dense: There are scattered areas of fibroglandular density. FINDINGS: There is no mammographic evidence for malignancy in the right breast. There are clustered indeterminate calcifications in the upper inner quadrant of the left breast, anterior third. There are nearby adjacent nodular asymmetries in the subareolar location. IMPRESSION: 1. Clustered indeterminate left breast calcifications with adjacent nodular asymmetries in the upper inner quadrant, anterior third. 2. Recommend comparison to previous outside mammograms if available. If no prior mammograms are available, additional views of the left breast and possible additional ultrasound recommended. BI-RADS Category 0: Incomplete: Needs additional imaging evaluation. Reviewed, dictated and finalized at location C. IMPRESSION: 1. Clustered indeterminate left breast calcifications with adjacent nodular asy mmetries in the upper inner quadrant, anterior third. 2. Recommend comparison to previous outside mammograms if available. If no prio r mammograms are available, additional views of the left breast and possible ad ditional ultrasound recommended. BI-RADS Category 0: Incomplete: Needs additional imaging evaluation.
--- OUTSIDE RECORDS SUMMARY | 2025-07-12 10:19 | XMS_ITS | Clinical Summary ---
Author Organization [facility] [address] Address [address] [place] [address] Care Team Providers Care Brazing Machine Operator Name Role Phone Leo Palacios MD Primary Care Provider Allergies Active Allergy Reactions Criticality Noted Date Comments Ezetimibe Muscle pain Medium 04/29/2021 Atorvastatin Cough Low Sulfa (Sulfonamide Antibiotics) Rash Medium 02/02/2020 Rivaroxaban Other (See comments) Low 03/19/2020 Bleeding Medications rosuvastatin (CRESTOR) 20 mg tablet take 1 tablet (20MG) by oral route every day 0 011 Active cycloSPORINE (RESTASIS) 0.05 % ophthalmic emulsion instill 1 drop by ophthalmic route every 12 hours into affected eye(s) 0 drop 0 013 Active ferrous sulfate (IRON) 325 mg (65 mg iron) capsule, extended release take 1 by Oral route every day 0 0 013 Active fluticasone-phyllis meterol (ADVAIR DISKUS) 250-50 mcg/dose diskus inhaler inhale 1 puff by inhalation route 2 times every day in the morning and evening approximately 12 hours apart 0 0 015 Active levothyroxine (SYNTHROID, LEVOTHROID) 100 mcg tablet Take 1 tablet (100 mcg total) by mouth senior environmental engineer before breakfast 018 Active cyanocobalamin (Vitamin B-12) 1,000 mcg tabletIndicatio ns:Prevention of Vitamin B12 Deficiency Take 0.5 tablets (500 mcg total) by mouth daily Active carboxymethylce llulose (REFRESH PLUS) 0.5 % dropperette Administer 1 drop into both eyes daily as needed for dry eyes Active furosemide (LASIX) 20 mg tabletIndicatio ns:Bilateral lower extremity edema Take 1 tablet (20 mg total) by mouth daily as needed (swelling) 30 tablet 11 023 Active omeprazole (PriLOSEC) 10 mg capsule Take 1 capsule (10 mg total) by mouth daily Active cholecalciferol (VITAMIN D-3) 2000 unit capsule Take 1 capsule (2,000 Units total) by mouth daily 023 Active ascorbic acid (ascorbic acid with ju hips) 500 mg tablet,chewable Take 1 tablet/chew tab (500 mg total) by mouth daily Active apixaban (ELIQUIS) 2.5 mg tabletIndicatio ns:atrial fibrillation Take 1 tablet (2.5 mg total) by mouth 2 (two) times a day 180 tablet 3 025 2025 Active telmisartan (MICARDIS) 40 mg tablet TAKE 1 TABLET BY MOUTH ONCE DAILY 100 tablet 3 025 Active telmisartan (MICARDIS) 40 mg tablet TAKE 1 TABLET BY MOUTH ONCE DAILY 100 tablet 2 024 2024 Discontinued Active Problems Problem Noted Date Diagnosed Date Bilateral carotid artery stenosis 02/16/2024 Chronic anticoagulation 02/26/2022 Bilateral lower extremity edema 12/12/2020 Presence of cardiac pacemaker 03/16/2017 Overview (06/07/2024): [place] Assurity Dual Pacemaker Dx; CHB, Afib. DOI 05/26/2024-Jeri. Chronic V-lead 07/16/2014, chronic atrial lead 01/20/11. [place] remote monitoring. Programmed VVI-Bill Single PM. Peripheral artery disease 03/16/2017 Hyperlipidemia LDL goal <70 03/16/2017 Essential hypertension, benign 03/16/2017 Non-rheumatic aortic stenosis 03/16/2017 Complete atrioventricular block 09/13/2014 Overview (01/16/2017): Complete atrioventricular block Atrial fibrillation 09/13/2014 Overview (01/16/2017): Atrial fibrillation Encounters Date Type Department Care Team Description 07/11/2025 10:30 AM CDT Ancillary Procedure [facility] Cardiology [address] [place] [phone] CHB (complete heart block); Paroxysmal atrial fibrillation (HCC); Presence of cardiac pacemaker 07/10/2025 Telephone [facility] Cardiology [address] [place] [address] [place] [phone] 07/10/[address] [place] [phone] Tony Figueroa MD 07/03/2025 2:15 PM CDT Office Visit [address] [place] [phone] Remberto Abernathy MD Paroxysmal atrial fibrillation (HCC) (Primary Dx); Chronic anticoagulation; History of fall; History of epistaxis; CHB (complete heart block); Presence of cardiac pacemaker; Essential hypertension, benign; Non-rheumatic aortic stenosis 06/28/2025 Orders Only [facility] Cardiology [address] [place] [address] [place] [phone] Tony Figueroa MD Complete atrioventricular block (HCC) (Primary Dx); Presence of cardiac pacemaker; Atrial fibrillation, unspecified type (HCC) 06/26/2025 7:30 AM CDT Ancillary Procedure [address] [place] [phone] Paroxysmal atrial fibrillation (HCC); CHB (complete heart block) 06/12/2025 Telephone [facility] Cardiology [address] [place] [address] [place] [phone] Tony Figueroa MD 06/06/2025 9:30 AM CDT Office Visit [facility] Cardiology [address] [place] [address] [place] [phone] Tony Figueroa MD Bilateral carotid artery stenosis (Primary Dx); Essential hypertension, benign; Hyperlipidemia LDL goal <70; Non-rheumatic aortic stenosis; Presence of cardiac pacemaker; Chronic anticoagulation; Paroxysmal atrial fibrillation (HCC) 06/06/2025 Orders Only [facility] Cardiology [address] [place] [address] Provider, MD Nara from Last 3 Months Family History Medical [...] on file 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 Gender Identity Not on file Sexual Orientation Not on file Obstetrics History Last Filed Vital Signs Vital Sign Reading Time Taken Comments Blood Pressure 138/62 07/03/2025 1:58 PM CDT Pulse 68 07/03/2025 1:58 PM CDT Temperature 36.3 C (97.3 F) 06/10/2020 9:00 AM CDT Respiratory Rate 14 07/03/2025 1:58 PM CDT Oxygen Saturation 97% 07/03/2025 1:58 PM CDT Inhaled Oxygen Concentration - - Weight 91.6 kg (202 lb) 07/03/2025 1:58 PM CDT Height 162.6 cm (5' 4) 07/03/2025 1:58 PM CDT Body Mass Index 34.67 07/03/2025 1:58 PM CDT Plan of Treatment Health Maintenance Due Date Last Done Comments Depression Screening 1940 Fall Risk Assessment 1940 Hepatitis B Screening 1958 Well Visit 65+ 2004 DTaP/Tdap/Td Vaccine (1 - Tdap) 06/01/2019 9, 05/31/2019 Pneumococcal vaccine 65+ (3 of 3 - PCV20 or PCV21) 10/30/2020 10/30/2015, 07/11/1999 Zoster Vaccine (2 of 2) 02/08/2024 12/14/2023 Osteoporosis Screening-Bone Density Scan 01/28/2025 01/28/2023 Influenza Vaccine (#1) 2025 3, 07/09/2022, 07/04/2021, Additional history exists Medical Devices Implanted Type Area Physician Office Assistant Device Identifier Shelf Expiration Date Model / Serial / Lot [employer] Optisense 7fr 46cm Is-1 Bipolar Connector Optim Insulation-09/2011 Implanted:09/2011 (Quantity not on file) Lead Right: Chest [employer] / [id number] / [employer] [id number] Tendril Sts 6fr 52cm Is-1 Connector Active Fixation Bipolar Soft- Implanted:03/2014 (Quantity not on file) Lead Right: Chest [employer] 2087TC/ / [id number] / Pacemaker-07/16/2014 Implanted:03/2014 (Quantity not on file) Pacemaker Chest [employer] CHB, PAF ASSURITY 2240 / [id number] / Description:Chronic Atrial l ead 01/20/2011. Procedures Procedure Name Priority Date/Time Associated Diagnosis Comments BASIC METABOLIC PANEL Routine 07/11/2025 11:54 AM CDT Paroxysmal atrial fibrillation (HCC) Non-rheumatic aortic stenosis ELECTROCARDIOGRAM REPORT Routine 025 3:20 PM CDT Paroxysmal atrial fibrillation (HCC) LIPID PANEL Routine 05/08/2025 12:13 PM CDT from Last 3 Months Results * (ABNORMAL) Basic metabolic panel (07/11/2025 11:54 AM CDT) Glucose 91 65 - 99 mg/dL [facility] Comment: Fasting reference interval BUN 28(H) 7 - 25 mg/dL [facility] Creatinine 1.55(H) 0.60 - 0.95 mg/dL [facility] eGFR 32(L) > OR = 60 mL/min/1.7 3m2 [facility] BUN/creat ratio 18 6 - 22 (calc) [facility] Sodium 136 135 - 146 mmol/L [facility] Potassium, pl 4.7 3.5 - 5.3 mmol/L [facility] Chloride 101 98 - 110 mmol/L [facility] CO2 29 20 - 32 mmol/L [facility] Calcium 9.3 8.6 - 10.4 mg/dL [facility] Blood 07/11/2025 11:5 4 AM CDT 07/11/2025 11:55 AM CDT Remberto Abernathy MD LAB BLOOD ORDERABLES Final Resul t [facility] [address] [place] [phone] * Electrocardiogram Report (07/03/2025 3:20 PM CDT) Remberto Abernathy MD ECG ORDERABLES Edited Result - Final * Lipid panel (05/08/2025 12:13 PM CDT) SCRIBED Cholesterol, Total 151 30 - 199 mg/dL [facility] SCRIBED Triglycerides 61 <=149 mg/dL [facility] SCRIBED HDL 66 >=40 mg/dL [facility] SCRIBED LDL 71 <=129 mg/dL [facility] Scribed Non-HDL Cholesterol 85 NONE mg/dL [facility] SCRIBED Total Cholesterol/HDL Ratio 151 NONE [facility] Blood Nara Stevenson MD LAB BLOOD ORDERABLES Edit ed Result - Final [facility] from Last 3 Months Insurance [facility] MEDICARE ADVANTAGE [facility] Address: [address] [address] [place] [address] [facility] [address] [place]CR HMO REF [facility] Address: [address] [address] [facility] [address] MEDICARE ADVANTAGE [facility] Address: [address] [address] [place] [address] Care Teams Brazing Machine Operator Relationship Specialty Start Date End Date Leo Palacios MD PCP - General 01/08/17
--- OUTSIDE RECORDS SUMMARY | 2025-07-12 10:19 | XMS_ITS | Encounter Summary ---
Author Organization [facility] Address [address] [address] Care Team Providers Care Medical Affairs Leader Name Role Phone Leo Palacios MD Primary Care Provider Encounter Details Date Type Department Care Team (Late st Contact Info) Description 02/09/2017 Orders Only [facility] ProviderNara MD [address] [place] [id number] Social History Tobacco Use Types Packs/Day Years Used Date Smoking Tobacco: Never Alcohol Use Standard Drinks/Week Comments No 0 (1 standard drink = 0.6 oz pur e alcohol) Comments Unknown Sex and Gender Information Value Date Recorded Sex Assigned at Not on file 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
--- OUTSIDE RECORDS SUMMARY | 2025-07-12 10:19 | XMS_ITS | Encounter Summary ---
Author Organization [facility] Address [address] [address] Care Team Providers Care [employer]rication Supervisor Name Role Phone Leo Palacios MD Primary Care Provider Leo Palacios MD Primary Care Provider Encounter Details Date Type Department Care Team (Late st Contact Info) Description 11/10/2016 Orders Only [facility] ProviderNara MD [facility] [place] [address] Social History Tobacco Use Types Packs/Day Years Used Date Smoking Tobacco: Never Alcohol Use Standard Drinks/Week Comments No 0 (1 standard drink = 0.6 oz pur e alcohol) Comments Unknown Sex and Gender Information Value Date Recorded Sex Assigned at Not on file 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
== END 2025-07-12 09:48 | disposition home or self-care (01) ==
LOC: ANHFOHIMG 09:49
PROVIDERS: PCP Internal Medicine; Visit Provider Internal Medicine
DX: Z12.31 Encounter for screening mammogram for malignant neoplasm of breast (principal); R91.8 Other nonspecific abnormal finding of lung field
CPT/HCPCS: 77063; 77067